=== PATIENT | female | born 1950 | race Caucasian/White ===

== ENCOUNTER 2016-10-27 15:41 | Inpatient (IN) | payer OTHER ==
[2016-10-27] VITALS (11 sets, daily range): BP systolic 90–131; BP diastolic 51–90; PULSE 70–96; TEMP 36.8–36.9; O2SAT 96–100; Ht 162.6 cm; Wt 95.6 kg
[~2016-10-27] VITALS: Ht 162.6 cm; Wt 95.6 kg
[~2016-10-27 15:41] MED LIST: ASPI81TA28 PO; ATOR-26 PO; CARV6.25 PO; CARV6.252 PO; CLX20 PO; DICL1GEL12 EXT; DOCU100C PO; FERR1TAB13 PO; FOLI1TAB7 PO; FURO-85 PO; GENT1SOL OTB; LAMO200T PO; LOSA1TAB38 PO; MELA1TAB3 PO; MISCCAP80 PO; PRENTAB26 PO; ROPI0.25 PO; WARF7.5T PO; WARF7.5T4 PO
--- NOTE | 2016-10-27 17:00 | DIAGNOSTIC IMAGING REPORT ---
CHEST ONE VIEW PORTABLE CLINICAL HISTORY: Shortness of breath and cough. Evaluate for pneumonia. COMPARISON STUDY: Chest radiograph April 15, 2016. FINDINGS: Lung volumes are normal. Lungs are clear. There is no pneumothorax or pleural effusion. Cardiac size is normal. There is a prosthetic aortic valve. There is no evidence of pulmonary edema. There are median sternotomy wires. The appearance of the chest is unchanged. IMPRESSION: No acute cardiopulmonary findings. Electronically signed by: Fabiano Gutierrez M.D. 10/27/2016 4:58 PM Dictated Date/Time: 10/27/2016 4:58 PM
[2016-10-27] MEDS ORDERED: SODIUM CHLORIDE 0.9% 500ML 500 ML IV STA (17:06)
[2016-10-27 17:30] LABS: HEMATOCRIT 18.1 % (37-47); MEAN CELL VOLUME 85.4 fL (80-100); MEAN CORPUSCULAR HEMOGLOBIN 28.3 pg (25-34); MEAN CORPUSCULAR HGB CONC 33.1 g/dl (32-36); MEAN PLATELET VOLUME 9.2 fL (7.4-10.4); PLATELET COUNT 146 K/uL (130-400); RED BLOOD COUNT 2.12 M/uL (4.2-5.4); WHITE BLOOD COUNT 8.09 K/uL (4.8-10.8)
[2016-10-27 17:33] LABS: INR 5.1 (0.9-1.1); PARTIAL THROMBOPLASTIN RATIO 1.7; PROTHROMBIN TIME (PATIENT) 58.6 SECONDS (9.0-12.0)
[2016-10-27] MEDS ORDERED: ACETAMINOPHEN 500 MG TAB PO ONE (17:35)
[2016-10-27] MEDS ORDERED: GENT0.3S6 OTB (18:20)
[2016-10-27] MEDS ORDERED: MELA1TAB5 PO (18:20)
[2016-10-27] MEDS ORDERED: ACET-1311 PO (18:22)
[2016-10-27] MEDS ORDERED: SENN-65 PO (18:23)
[2016-10-27] MEDS ORDERED: PHYTONADIONE INJ 2 MG in SODIUM CHLORIDE 0.9% 50ML 50 ML IV ONE (18:30)
[2016-10-27] MEDS ORDERED: GENTAMICIN SULFATE 0.3% OP SOLN 5 ML BTL OT PRN (20:00)
[2016-10-27] MEDS ORDERED: ONDANSETRON INJ 2 MG/ML 2 ML VIAL IV PRN (20:00)
[2016-10-27] MEDS ORDERED: MELATONIN 6 MG PO PRN (20:00)
[2016-10-27] MEDS ORDERED: ROPINIROLE HCL 0.25 MG TAB PO PRN (20:00)
--- NOTE | 2016-10-27 20:00 | History and Physical ---
History & Physical Date & Time of Service: Oct 27, 2016 at 19:58 Chief Complaint: Low Blood Pressure, Low Oxygen Level Primary Care Physician: Tanya Soriano M.D. History of Present Illness Source: patient This a 66 yo F with past medical hx of congenital bicuspid aortic valve s/p mechanical aortic valve replacement by Dr Merino in [place], [place] in 2006 , HTN , Hyperlipidemia presented to ED with progressive SOB , JONES , dizzy spell and lightheadedness , seen at her PCP office today at [facility] Found to be hypotensive BP 84/64 lab work showed Hb ~6 pt was asked to come to ED for further evaluation pt mentions of having chronic dark stool as she takes Fe tablet , no bright red blood per rectum , no hematemesis she takes Coumadin for mechanical AVR INR ~ 5 in ED pt was admitted on 03/2016 with similar presentation , profound anemia required multiple PRBC transfusion Colonoscopy done on 04/18/16 was normal study pt will be admitted to Telemetry PRBC transfusion ordered to correct anemia /hypotension GI eval requested Past Medical/Surgical History Aortic valve, bicuspid 08/03/2006 Bipolar 2 disorder, major depressive episode (HCC) [facility], Dr Oconnor Chronic mastoiditis Chronic sinusitis Dysfunction of eustachian tube Dyslipidemia HTN, Mixed hearing loss, bilateral Otitis media TIA (transient ischemic attack) 2011 while off of couamdin and on lovenox Family History Cancer FH: coronary artery disease Heart disease Hypertension Social History Smoking Status: Former Smoker Smokeless Tobacco Use: No Alcohol Use: none Drug Use: none Marital Status: Housing status: lives with family Occupational Status: retired Immunizations History of Influenza Vaccine: Yes Influenza Vaccine Date: Jun 23, 2005 History of Tetanus Vaccine?: Yes Tetanus Immunization Date: Dec 22, 2000 History of Pneumococcal: Yes History of Hepatitis B Vaccine: Yes Hepatitis Immunization Date: Feb 21, 1999 Multi-Drug Resistant Organisms History of MDRO: No Allergies Coded Allergies: Ciprofloxacin (Verified Allergy, Intermediate, NAUSEA/HIVES, 10/27/16) Simvastatin (Verified Allergy, Intermediate, HIVES AND SWELLING, 10/27/16) Latex1 -Allergic Contact Dermititis (Verified Allergy, Unknown, BLISTERING HIVES, 10/27/16) Penicillins (Verified Allergy, Unknown, HIVES, 10/27/16) Home Medications Scheduled Aspirin (Aspirin Ec), 81 MG PO DAILY AT NOON Atorvastatin (Lipitor), 80 MG PO QAM Carvedilol (Coreg), 6.25 MG PO BID Docusate Sodium (Stool Softener), 1 CAP PO DAILY AFTERNOON Ferrous Sulfate (Kp Ferrous Sulfate), 1 TAB PO DAILY AFTERNOON Folic Acid (Folvite), 1 MG PO DAILY AFTERNOON Furosemide (Lasix), 20 MG PO QAM Lamotrigine (Lamictal), 200 MG PO QPM Losartan Potassium (Cozaar), 100 MG PO QAM Multivit/Min/Iron/Fol Ac/Pren ( Vitamin), 1 TAB PO DAILY AFTERNOON Probiotic Product (Probiotic), 1 CAP PO DAILY AT NOON Senna/Docusate Sod (Senokot S), 1 TAB PO BID Warfarin Sod (Jantoven), 7.5 MG PO 4XWK Warfarin Sodium (Coumadin), 1.5 TABS PO 3XWK Scheduled PRN Acetaminophen (Tylenol), 325 MG PO BID PRN for Pain Diclofenac Sodium (Topical) (Voltaren 1% Top Gel), 1 DOSE EXT DIRECTED PRN for Pain Gentamicin Sulfate (Ophth) (Gentamicin 0.3% Oph), 4 DROPS OTB UD PRN for PRN Melatonin (Kp Melatonin), 6 MG PO HS PRN for Insomnia Ropinirole (Requip), 0.25 MG PO QPM PRN for RESTLESS LEG Review of Systems Constitutional: + fatigue, + weakness Eyes: No diplopia, No discharge, No eye pain, No problem reported, No redness, No worsening of vision Respiratory: + dyspnea at rest, + dyspnea on exertion, + shortness of breath, No cough, No hemoptysis, No problem reported, No sputum, No wheezing Cardiovascular: + palpitations, No PND, No chest pain, No claudication, No edema, No orthopnea, No problem reported Abdomen: + problem reported (chronic dark stool ), No GI bleeding, No constipation, No diarrhea, No nausea, No pain, No vomiting Musculoskeletal: No calf pain, No joint pain, No muscle pain, No problem reported, No swelling Neurologic: + vertigo, + weakness Endocrine: + fatigue Physical Exam Vital Signs Date Time Temp Pulse Resp B/P Pulse Ox O2 Delivery O2 Flow Rate FiO2 10/27/16 19:52 73 18 119/63 100 2.0 10/27/16 19:50 79 16 119/63 100 2.0 10/27/16 19:38 36.8 72 16 130/55 100 2.0 10/27/16 19:02 73 17 117/48 100 Nasal Cannula 2.0 10/27/16 18:41 74 17 100 Nasal Cannula 2.0 10/27/16 18:34 79 80/48 100 Nasal Cannula 2.0 10/27/16 18:32 80/48 10/27/16 18:11 69 12 100 10/27/16 17:41 75 16 100 10/27/16 17:22 66 10/27/16 17:20 100 Nasal Cannula 2.0 10/27/16 17:04 97/43 10/27/16 16:49 65 18 97/43 100 Room Air 10/27/16 16:02 78 100 Room Air 10/27/16 15:52 36.9 18 95/48 Room Air General Appearance: no apparent distress Head: normocephalic, atraumatic Eyes: sclerae normal Neck: supple, thyroid normal, no JVD Respiratory/Chest: chest non-tender, lungs clear, normal breath sounds, no respiratory distress Cardiovascular: regular rate, rhythm, + pertinent finding (systolic murmur / mechanical valve in aortic area ) Abdomen/GI: normal bowel sounds, non tender, soft Extremities/Musculoskelatal: normal capillary refill, no pedal edema Neurologic/Psych: no motor/sensory deficits, alert, normal mood/affect, + abnormal cerebellar tests Skin: normal color, warm/dry, no rash Lymphatic: no adenopathy Diagnostics Laboratory Results Results Past 24 Hours Test 10/27/16 17:06 Range/Units White Blood Count 8.09 4.8-10.8 K/uL Red Blood Count 2.12 4.2-5.4 M/uL Hemoglobin 6.0 12.0-16.0 g/dL Hematocrit 18.1 37-47 % Mean Corpuscular Volume 85.4 80-100 fL Mean Corpuscular Hemoglobin 28.3 25-34 pg Mean Corpuscular Hemoglobin Concent 33.1 32-36 g/dl RDW Standard Deviation 50.4 36.4-46.3 fL RDW Coefficient of Variation 16.8 11.5-14.5 % Platelet Count 146 130-400 K/uL Mean Platelet Volume 9.2 7.4-10.4 fL Prothrombin Time 58.6 9.0-12.0 SECONDS Prothromb Time International Ratio 5.1 0.9-1.1 Activated Partial Thromboplast Time 44.9 21.0-31.0 SECONDS Partial Thromboplastin Ratio 1.7 Troponin I < 0.015 0-0.045 ng/ml Diagnostic Radiology CHEST ONE VIEW PORTABLE CLINICAL HISTORY: Shortness of breath and cough. Evaluate for pneumonia. COMPARISON STUDY: Chest radiograph April 15, 2016. FINDINGS: Lung volumes are normal. Lungs are clear. There is no pneumothorax or pleural effusion. Cardiac size is normal. There is a prosthetic aortic valve. There is no evidence of pulmonary edema. There are median sternotomy wires. The appearance of the chest is unchanged. IMPRESSION: No acute cardiopulmonary findings. Impression Assessment and Plan SYMPTOMATIC ANEMIA presented with hB ~6 , possible GI bleed -upper vs lower pt requires to be on therapeutic anticoagulation with Coumadin for mechanical AVR presented with dizzy spell , lightheadedness, JONES, Hypotension symptom has been ongoing for past 10 days , got worse yesterday hx of prior anemia ~ 7 months back , required PRBC transfusion Colonoscopy was normal, ordered for 2 units of PRBC to be transfused follow H&H Q 4hrs will continue transfuse till hb > 8 /improvement of symptoms NPO IV Protonix gtt GI eval requested HX OF MECHANICAL PROSTHETIC VALVE : hx of congenital bicuspid Aortic valve with severe aortic stenosis /moderate aortic insufficiency s/p aortic valve replacement with [address] [employer] mechanical robby in 07/08/[address] Merino in [facility] follows with Cardiology Gustabo Velarde on Chronic anticoagulation with Coumadin ; goal INR 2.5 -3.5 presents with INR ~5 , severe anemia , concern for GI bleed 2 mg IV Vit K given in ED repeat INR check at 1200 monitor daily PT/INR will need IV heparin bridge therapy for INR < 2 HTN : presented with hypotension due to GI bleed /blood loss anemia ordered for PRBC tranfusion hold Losartan, metoprolol monitor in Tele SOB /JONES : due to anemia no evidence of ACS Cardiac cath done prior to AVR -showed normal coronaries ECHO on 04/15/16 : LV EF normal 55-60 % , mechanical aortic valve gradient normal for prosthetic aortic valve , mild to moderate tricuspid regurgitation Doppler findings do not suggest pulmonary hypertension monitor in tele possible improvement of symptom after correction of anemia /hypotension will need repeat ECHO , cardiology eval if symptom of JONES , dizzy spell persists after Hb improves with PRBC transfusion FULL CODE DVT PROPHYLAXIS : SCD AND TEDS NO ANTICOAGULATION DUE TO GI BLEED AND ANEMIA DISPOSITION : expected to discharge home when medically stable medicine follow up with Dr Soriano Cardiology follow up with Gustabo Velarde PA-C Level of Care Telemetry Resuscitation Status FULL RESUSCITATION VTE Prophylaxis VTE Risk Assessment Done? Y/N: Yes Risk Level: Moderate Given or contraindicated: T.E.Rickie Stockings, SCD's Note In my clinical judgment this beneficiary meets acute admission criteria, established by [facility], that includes being hospitalized through two midnights. Additional Copies To Tanya Soriano M.D. Gustabo Velarde PA-C
[2016-10-27] MEDS ORDERED: PANTOprazole INJ 80 MG in DEXTROSE 5% 100ML IV SCH (20:15)
[2016-10-27] MEDS ORDERED: PANTOprazole INJ 40 MG in DEXTROSE 5% 100ML IV SCH (20:35)
[2016-10-27] MEDS: FERROUS SULFATE 325 MG TAB PO SCH (22:22)
--- NOTE | 2016-10-27 22:32 | EMERGENCY ROOM VISIT NOTE ---
History Report prepared by Yeniibmary ellen: Chetna Kwon Under the Supervision of: Dr. Chris Wang M.D. First contact with patient: 16:25 Chief Complaint: HYPOTENSION Stated Complaint: LOW BLOOD PRESSURE, LOW OXYGEN LEVEL History of Present Illness The patient is a 66 year old female who presents to the Emergency Room with complaints of worsening dizziness for the past 10 days. She is accompanied by her . She also complains of shortness of breath and states "I can feel that I'm low on Oxygen". She checked her pulse ox last night and states it her Oxygen was around 87. The patient saw her doctor, Dr. Cherelle Huggins, earlier today and also had labs drawn. Her blood pressure was 80/47 in the office and she was found to be highly anemic and was referred to the ED for further evaluation. She denies any rectal bleeding, hematochezia or abdominal pain. The patient admits she does take daily Warfarin and has been on it for over 10 years due to heart valve issues. She states her INR was last checked a few days ago, and was "normal". The patient reports she had a colonoscopy in August 2016 and the results were "normal". 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 A total of 10 systems reviewed and were otherwise negative. Past Medical & Surgical Medical Problems: (1) Anemia (2) Anticoagulation therapy continued upon discharge (3) GI bleed (4) Hypertension (5) Kidney disease Family History Cancer FH: coronary artery disease Heart disease Hypertension Social History Smoking Status: Former Smoker Alcohol Use: occasionally Drug Use: none Marital Status: Housing Status: lives with family Occupation Status: retired Current/Historical Medications Scheduled Aspirin (Aspirin Ec), 81 MG PO DAILY AT NOON Atorvastatin (Lipitor), 80 MG PO QAM Carvedilol (Coreg), 6.25 MG PO BID Docusate Sodium (Stool Softener), 1 CAP PO DAILY AFTERNOON Ferrous Sulfate (Kp Ferrous Sulfate), 1 TAB PO DAILY AFTERNOON Folic Acid (Folvite), 1 MG PO DAILY AFTERNOON Furosemide (Lasix), 20 MG PO QAM Lamotrigine (Lamictal), 200 MG PO QPM Losartan Potassium (Cozaar), 100 MG PO QAM Multivit/Min/Iron/Fol Ac/Pren ( Vitamin), 1 TAB PO DAILY AFTERNOON Probiotic Product (Probiotic), 1 CAP PO DAILY AT NOON Senna/Docusate Sod (Senokot S), 1 TAB PO BID Warfarin Sod (Jantoven), 7.5 MG PO 4XWK Warfarin Sodium (Coumadin), 1.5 TABS PO 3XWK Scheduled PRN Acetaminophen (Tylenol), 325 MG PO BID PRN for Pain Diclofenac Sodium (Topical) (Voltaren 1% Top Gel), 1 DOSE EXT DIRECTED PRN for Pain Gentamicin Sulfate (Ophth) (Gentamicin 0.3% Oph), 4 DROPS OTB UD PRN for PRN Melatonin (Kp Melatonin), 6 MG PO HS PRN for Insomnia Ropinirole (Requip), 0.25 MG PO QPM PRN for RESTLESS LEG Allergies Coded Allergies: Ciprofloxacin (Verified Allergy, Intermediate, NAUSEA/HIVES, 10/27/16) Simvastatin (Verified Allergy, Intermediate, HIVES AND SWELLING, 10/27/16) Latex1 -Allergic Contact Dermititis (Verified Allergy, Unknown, BLISTERING HIVES, 10/27/16) Penicillins (Verified Allergy, Unknown, HIVES, 10/27/16) Physical Exam Vital Signs Date Time Temp Pulse Resp B/P Pulse Ox O2 Delivery O2 Flow Rate FiO2 10/27/16 19:50 79 16 119/63 100 2.0 10/27/16 19:49 75 20 100 10/27/16 19:44 71 17 117/48 100 Nasal Cannula 2.0 119/63 10/27/16 19:38 36.8 72 16 130/55 100 2.0 10/27/16 19:37 73 17 117/48 100 Nasal Cannula 2.0 130/55 10/27/16 19:02 73 17 117/48 100 Nasal Cannula 2.0 10/27/16 19:01 74 16 117/48 100 10/27/16 18:41 74 17 100 Nasal Cannula 2.0 10/27/16 18:34 79 80/48 100 Nasal Cannula 2.0 10/27/16 18:32 80/48 10/27/16 18:11 69 12 100 10/27/16 17:41 75 16 100 10/27/16 17:22 66 10/27/16 17:20 100 Nasal Cannula 2.0 10/27/16 17:04 97/43 10/27/16 16:49 65 18 97/43 100 Room Air 10/27/16 16:02 78 100 Room Air 10/27/16 15:52 36.9 18 95/48 Room Air Physical Exam Constitutional: Vital signs reviewed. Eyes: Pupils are equal round reactive to light. Conjunctiva are noninjected. ENT: Pharynx is clear without erythema or exudate. Mucous membranes are moist. Neck supple without meningeal signs. Respiratory: Clear to auscultation bilaterally. Breath sounds are equal bilaterally. Cardiovascular: Regular rate and rhythm. No rubs or gallops. Network Operations Analyst valve audible. GI: Soft, nondistended and nontender. Bowel sounds are present. Rectal: Guaiac positive brown stool. No gross blood. Musculoskeletal: No peripheral edema. No lower extremity tenderness. Integumentary: No cyanosis. Neurological: The patient is awake and alert. No focal deficits. Psychiatric: Normal affect. Medical Decision & Procedures ER Provider Diagnostic Interpretation: This X-Ray was reviewed and interpreted by myself and the radiologist. CHEST ONE VIEW PORTABLE CLINICAL HISTORY: Shortness of breath and cough. Evaluate for pneumonia. COMPARISON STUDY: Chest radiograph April 15, 2016. FINDINGS: Lung volumes are normal. Lungs are clear. There is no pneumothorax or pleural effusion. Cardiac size is normal. There is a prosthetic aortic valve. There is no evidence of pulmonary edema. There are median sternotomy wires. The appearance of the chest is unchanged. IMPRESSION: No acute cardiopulmonary findings. Electronically signed by: Fabiano Gutierrez M.D. 10/27/2016 4:58 PM Laboratory Results 10/27/16 17:06 Test 10/27/16 17:06 Red Blood Count 2.12 M/uL (4.2-5.4) Mean Corpuscular Volume 85.4 fL (80-100) Mean Corpuscular Hemoglobin 28.3 pg (25-34) Mean Corpuscular Hemoglobin Concent 33.1 g/dl (32-36) RDW Standard Deviation 50.4 fL (36.4-46.3) RDW Coefficient of Variation 16.8 % (11.5-14.5) Mean Platelet Volume 9.2 fL (7.4-10.4) Prothrombin Time 58.6 SECONDS (9.0-12.0) Prothromb Time International Ratio 5.1 (0.9-1.1) Activated Partial Thromboplast Time 44.9 SECONDS (21.0-31.0) Partial Thromboplastin Ratio 1.7 Troponin I < 0.015 ng/ml (0-0.045) Laboratory results as reviewed by me. Medications Administered Medications (Trade) Dose Ordered Sig/Jace Route Start Time Stop Time Status Last Admin Dose Admin Sodium Chloride (Nss 500ml) 500 ml @ 999 mls/hr Q31M STAT IV 10/27/16 17:06 10/27/16 17:36 DC 10/27/16 17:06 999 MLS/HR Acetaminophen 1000 mg 1,000 mg STK-MED ONCE PO 10/27/16 17:35 10/27/16 17:36 DC 10/27/16 17:35 1,000 MG Phytonadione/ Sodium Chloride (Aqua-Mephyton Inj/Nss 50ml) 50.2 ml @ 100.5 mls/ hr ONE ONCE IV 10/27/16 18:30 10/27/16 18:59 DC 10/27/16 19:09 100.5 MLS/HR ECG Indication: weakness Rate (beats per minute): 67 Rhythm: normal sinus Findings: T-wave inversion (in V1 to V2), no ectopy ED Course 1627: The patient was evaluated in room C2A. A complete history and physical exam was performed. 1700: I reevaluated the patient. Her blood pressure is 97/43 and she is just now getting an IV placed. 1706: NSS 500 ml @ 999 mls/hr IV. 1730: I reevaluated the patient. She complains of some intermittent shoulder achiness, which she has experienced before. We will treat with Tylenol. 1735: Acetaminophen 1000 mg PO. 1755: I discussed the patients case with Dr. Benitez, [facility] Anticoagulation Medicine. She states we can either try to get the patients INR to a therapeutic level by giving Vitamin K, or completely reverse her and put her on Heparin. We can discuss this with the hospitalist, and see what they would like to do. 1803: I reevaluated the patient. I discussed her options with anticoagulation. She states if we do decide to reverse her, we have to put on her a Heparin drip , because when she was reversed in the past after shoulder surgery, she developed a "stroke in her eye". 184: I discussed the patients case with Jesica García Hospitalist. The patient will be further evaluated and Dr. Bee is agreeable with Vitamin K for now. 1853: Transfusion of Vitamin K initiated. 1909: I reevaluated the patient. Her blood pressure is 117/48 and the blood is ready. Medical Decision This is a 66-year-old female who presents with dizziness. Differential diagnosis includes GI bleed, anemia, supratherapeutic INR, cardiac ischemia, pneumonia. I did perform a limited focused review of portions of the patient's old chart on the electronic medical record. The patient has had no recent pertinent visits to this hospital. She had a colonoscopy in April 2016 which was unremarkable. I did evaluate the patient as noted above. The patient is presenting with dizziness for the past 10 days. She had blood work drawn at [facility] today which showed a hemoglobin of 6. IV access was established. The patient was placed on a continuous cardiac technician.The patient was given a bolus of normal saline IV for her blood pressure. I did order and personally review the patient 's 12-lead EKG and chest x-ray as described above. I did order and review the patient's blood work as noted in the electronic medical record. Her hemoglobin is 6. INR is 5.1. I did discuss the case with to her recommended either completely reversing her and placing on heparin versus giving her 2 mg of IV vitamin K to bring her INR down and transfusing her. I did discuss recommendations with the patient and her . I did order a transfusion for 2 units of packed red blood cells. I did treat her with 2 mg of vitamin K. I did discuss the case with the hospitalist. She was admitted to the hospital. Consults Time Called: 1750 Consulting Physician: Dr. Benitez, [facility] Anticoagulation Medicine Returned Call: [phone] I discussed the patients case with Dr. Benitez, [facility] Anticoagulation Medicine. She states we can either try to get the patients INR to a therapeutic level by giving Vitamin K, or completely reverse her and put her on Heparin. We can discuss this with the hospitalist, and see what they would like to do. Additional Consults: Time Called: 1800 Consulted Physician: Jesica García Hospitalist Returned Call: [phone] Additional Comments: I discussed the patients case [facility] Dr. Bee[facility] The patient will be further evaluated and Dr. Bee is agreeable with Vitamin K for now. Impression Primary Impression: GI bleed Additional Impressions: Supratherapeutic INR Anticoagulated on warfarin Hypotension Critical Care I have personally spent greater than 30 minutes of critical care time in the direct management of this patient. This includes bedside care, interpretation of diagnostic studies, and testing, discussion with consultants, patient, and family members, and other required patient management activities. This 30 minutes is in excess of all separately billable procedures. Scribe Attestation The scribe's documentation has been prepared under my direct and personally reviewed by me in its entirety. I confirm that the note above accurately reflects all work, treatment, procedures, and medical decision making performed by me. Departure Information Dispostion Being Evaluated By Hospitalist Referrals Tanya Soriano M.D. (PCP) Patient Instructions [facility] Problem Qualifiers
[2016-10-28] VITALS (12 sets, daily range): BP systolic 103–137; BP diastolic 65–83; PULSE 68–78; TEMP 36.5–36.8; O2SAT 93–99
[2016-10-28] MEDS: DOCUSATE SODIUM 100 MG CAP PO SCH ×3 (00:15→20:54)
[2016-10-28] MEDS: PANTOprazole INJ 40 MG in DEXTROSE 5% 100ML IV SCH ×5 (02:02→21:03)
[2016-10-28 03:02] LABS: INR 1.8 (0.9-1.1); PROTHROMBIN TIME (PATIENT) 20.2 SECONDS (9.0-12.0)
[2016-10-28 03:13] LABS: BUN/CREATININE RATIO 22.3 (10-20); CALCIUM 7.6 mg/dl (8.5-10.1); CREATININE 1.1 mg/dl (0.60-1.20); MAGNESIUM 2.2 mg/dl (1.8-2.4); POTASSIUM 3.5 mmol/L (3.5-5.1)
[2016-10-28 03:15] LABS: ALB/GLOB RATIO 1.2 (0.9-2)
[2016-10-28 04:22] LABS: HEMATOCRIT 23.3 % (37-47)
[2016-10-28] MEDS ORDERED: FUROSEMIDE INJ 20 MG in SYRINGE 0 ML IV STA (04:28)
[2016-10-28] MEDS ORDERED: HEPARIN IV LOW DOSE NO BOLUS STA (05:40)
--- NOTE | 2016-10-28 06:31 | Progress Note ---
Progress Note ATTENDING ADDENDUM: lab reviewed : Hb improved to 6-> 7.7 after 2 units of PRBC transfusion INR 1.8 symptom of dizzy spell , SOB , JONES markedly improved with PRBC transfusion BP normalized to 130/70 resume beta kim with holding parameters cont to hold Losartan till GI Bleed work up complete ( may need bowel prep for repeat Colonoscopy ) given recurrent GI bleed /anemia should have EGD /Colonoscopy will defer to GI ordered for 1 more unit of PRBC transfusion started on IV Heparin Bridge therapy as INR sub therapeutic -presence of mechanical AVR
[2016-10-28 06:58] LABS: PARTIAL THROMBOPLASTIN RATIO 1.2
[2016-10-28] MEDS: HEPARIN 25,000 UNIT/500ML D5W 500 ML IV PRN (07:12)
[2016-10-28] MEDS: PRENATAL VITAMIN TAB PO SCH (08:30)
[2016-10-28] MEDS: CARVEDILOL 6.25 MG TAB PO SCH ×2 (08:34→20:52)
[2016-10-28 09:00] LABS: HEMATOCRIT 27.3 % (37-47); MEAN CELL VOLUME 83.7 fL (80-100); MEAN CORPUSCULAR HEMOGLOBIN 27.6 pg (25-34); MEAN PLATELET VOLUME 9.6 fL (7.4-10.4); PLATELET COUNT 123 K/uL (130-400); RED BLOOD COUNT 3.26 M/uL (4.2-5.4); WHITE BLOOD COUNT 6.39 K/uL (4.8-10.8)
[2016-10-28] MEDS ORDERED: DOCUSATE SODIUM 100 MG CAP PO SCH (09:00)
[2016-10-28 13:48] LABS: PARTIAL THROMBOPLASTIN RATIO 2.3
--- NOTE | 2016-10-28 13:54 | GASTROINTESTINAL CONSULTATION ---
DATE OF CONSULTATION: 10/28/2016 RACE: . ATTENDING PHYSICIAN: Dr. Maxwell. CONSULTING PHYSICIAN: Dr. Buckner. REASON FOR CONSULTATION: Anemia, GI bleeding. HISTORY OF PRESENT ILLNESS: Domi Urrutia is a 66-year-old female who has an extensive past medical history including congenital bicuspid aortic valve status post mechanical aortic valve replacement in 2006, on chronic anticoagulation. She was noted to have shortness of breath, dyspnea on exertion and lightheadedness and dizziness while being seen at her PCP's office on 10/27/2016 and subsequently presented to the Department of Emergency Medicine where she was noted to have an H\T\H of 6.0 and 18.1. She received a total of 3 units of packed red blood cells and was placed on Protonix drip at 8 mg per hour. She had a subsequent rise of her H\T\H to today's level of 9.0 and 27.3 and states that she is feeling much better. It should be noted that upon arrival to the ER, her INR was noted to be elevated at 5.1 and she was given vitamin K and her INR today is 1.8. She did have a similar episode in April at which time she underwent a colonoscopy by Dr. Alejandre in April 2016, which was normal. She has never undergone an upper endoscopy as per the patient. She states that she does not have any history of GERD nor does she take any PPI therapy at home and denies any chronic NSAID use, but is again on Coumadin therapy. She denies any further complaints at this time including hematemesis, melena, hematochezia, fevers, chills, nausea, vomiting, chest pain, shortness of breath, cough, dysuria, hematuria, arthralgia, myalgias, numbness or tingling in her extremities, skin rash or recent weight loss. PAST MEDICAL HISTORY: Significant for bicuspid aortic valve, hypertension, hyperlipidemia, bipolar disease, chronic mastoiditis, chronic sinusitis, dyslipidemia, hypertension, bilateral mixed hearing loss, otitis media and TIA. PAST SURGICAL HISTORY: Includes mechanical aortic valve replacement by Dr. Merino at [facility] in [place] in 2006. ALLERGIES: CIPROFLOXACIN, LATEX, PENICILLIN, AND ZOCOR. CURRENT MEDICATIONS: Include folic acid 1 mg p.o. daily, vitamin 1 tab p.o. daily, carvedilol 6.25 mg p.o. b.i.d., heparin IV, Protonix 40 mg drip at 8 mg per hour, Colace 100 mg p.o. daily, Lamictal 200 mg p.o. q.p.m., Zofran 4 mg IV q. 6 p.r.n. nausea, Requip 0.25 mg p.o. q.p.m. p.r.n. restless legs, iron sulfate therapy 325 mg p.o. daily. SOCIAL HISTORY: She is . She denies any tobacco, alcohol or illicit drug use. FAMILY HISTORY: Negative for GI malignancy or inflammatory bowel disease. REVIEW OF SYSTEMS: Negative x12 system review other than pertinent positives listed in the HPI. PHYSICAL EXAMINATION: VITAL SIGNS: Include a temp of 36.7, pulse 78, respirations 16, blood pressure 103/65, pulse ox 93% on room air. GENERAL: She is awake, cooperative, in no acute distress. She is chronic ill appearing. HEAD: Normocephalic, atraumatic. EYES: Pupils equally round. Extraocular muscles are intact. ENT: External evaluation of ears and nose are normal. Oropharynx is clear. NECK: Soft and supple. There is no JVD or lymphadenopathy. CHEST: Clear to auscultation bilaterally. CARDIOVASCULAR SYSTEM: Regular rate and rhythm. ABDOMEN: Soft, nontender, nondistended. There are positive bowel sounds. There is no hepatosplenomegaly or stigmata of chronic liver disease. EXTREMITIES: No clubbing, cyanosis or edema. LABORATORY STUDIES: From today include an H\T\H of 9.0 and 27.3. A liver panel today shows a total protein 5.3, albumin 2.9, total bilirubin 0.6, AST 18, ALT 18 and alkaline phosphatase of 73. IMPRESSION: A 66-year-old female with symptomatic anemia with transfusion requirement with appropriate response. PLAN: At the present time the patient had an appropriate response to transfusion of 3 units of packed red blood cells and will be maintained on a Protonix drip at 8 mg per hour. She has undergone a colonoscopy as recently as April 2016 and therefore, I did not think that she has any reason to undergo a colonoscopy at this time, though she has never undergone an upper endoscopy in the past as she is currently hemodynamically stable and had an appropriate response to transfusions without any overt GI bleeding, I do not believe that this is an emergency and I will follow her clinical course throughout her hospitalization, though she will need EGD in the short term. I will continue her Protonix therapy at present. I will follow her clinical course and make further recommendations as needed. Once again, thank you for allowing me to participate in the care of this patient. If you have any further questions, please do not hesitate in contacting me.
[2016-10-28] MEDS: CITALOPRAM 40 MG TAB PO SCH (14:13)
[2016-10-28 16:28] LABS: HEMATOCRIT 27.1 % (37-47)
--- NOTE | 2016-10-28 18:04 | Progress Note ---
Medicine Progress Note Date & Time of Visit: Oct 28, 2016 at 17:58. Subjective Patient seen and examined. Feeling better this morning after transfusion. Objective Last 8 Hrs Date Time Temp Pulse Resp B/P Pulse Ox O2 Delivery O2 Flow Rate FiO2 10/28/16 16:00 Room Air 10/28/16 15:13 36.7 68 20 118/73 97 Room Air 10/28/16 12:00 Room Air 10/28/16 11:30 36.7 78 16 103/65 93 Room Air Physical Exam: General-awake; alert; NAD Eyes-EOMI; no scleral icterus Neck-no stridor; trachea midline Lungs-CTA bilaterally; no wheezes/crackles Heart-RRR; +murmur Abdomen-soft; NTND; nBS Extremities-no c/c/e; no deformity Neuro-no gross focal deficits Laboratory Results: Last 24 Hours Test 10/28/16 02:40 10/28/16 02:45 10/28/16 08:07 10/28/16 13:06 Hemoglobin 7.7 g/dL 9.0 g/dL Hematocrit 23.3 % 27.3 % Prothrombin Time 20.2 SECONDS Prothromb Time International Ratio 1.8 Activated Partial Thromboplast Time 32.3 SECONDS 59.9 SECONDS Partial Thromboplastin Ratio 1.2 2.3 Sodium Level 143 mmol/L Potassium Level 3.5 mmol/L Chloride Level 107 mmol/L Carbon Dioxide Level 26 mmol/L Anion Gap 10.0 mmol/L Blood Urea Nitrogen 24 mg/dl Creatinine 1.10 mg/dl Est Creatinine Clear Calc Drug Dose 58.5 ml/min Estimated GFR () 61.4 Estimated GFR (Non- 53.0 BUN/Creatinine Ratio 22.3 Random Glucose 87 mg/dl Calcium Level 7.6 mg/dl Magnesium Level 2.2 mg/dl Total Bilirubin 0.6 mg/dl Aspartate Amino Transf (AST/SGOT) 18 U/L Alanine Aminotransferase (ALT/SGPT) 18 U/L Alkaline Phosphatase 73 U/L Total Protein 5.3 gm/dl Albumin 2.9 gm/dl Globulin 2.4 gm/dl Albumin/Globulin Ratio 1.2 White Blood Count 6.39 K/uL Red Blood Count 3.26 M/uL Mean Corpuscular Volume 83.7 fL Mean Corpuscular Hemoglobin 27.6 pg Mean Corpuscular Hemoglobin Concent 33.0 g/dl RDW Standard Deviation 45.8 fL RDW Coefficient of Variation 15.8 % Platelet Count 123 K/uL Mean Platelet Volume 9.6 fL Test 10/28/16 16:18 Hemoglobin 9.1 g/dL Hematocrit 27.1 % Assessment & Plan SYMPTOMATIC ANEMIA - Hgb ~6 on admission - patient denies any active bleeding symptoms - colonoscopy was normal in 04/2016 - GI consulted - transfused 3units PRBC's with appropriate response in Hgb - continue IV Protonix gtt - possible upcoming EGD HX OF MECHANICAL PROSTHETIC VALVE - hx of congenital bicuspid Aortic valve with severe aortic stenosis /moderate aortic insufficiency - s/p aortic valve replacement with [address] [employer] mechanical robby in 07/08/[address] Merino in [facility] - INR reversed with vitamin K - continue heparin drip HTN - presented with hypotension - improved after transfusions - hold Losartan, metoprolol FULL CODE DVT PROPHYLAXIS : SCD AND TEDS NO ANTICOAGULATION DUE TO GI BLEED AND ANEMIA DISPOSITION : expected to discharge home when medically stable medicine follow up with Dr Soriano Cardiology follow up with Gustabo Velarde PA-C Consultants: Gastroenterology Current Inpatient Medications: Current Inpatient Medications Medications (Trade) Dose Ordered Sig/Jace Route Start Time Stop Time Status Last Admin Dose Admin Ondansetron HCl (Zofran Inj) 4 mg Q6H PRN IV 10/27/16 20:00 11/26/16 19:59 Folic Acid (Folvite Tab) 1 mg DAILY PO 10/28/16 09:00 11/27/16 08:59 10/28/16 08:30 1 MG Gentamicin Sulfate (Gentamicin 0.3% Oph Soln) 4 drops UD PRN OT 10/27/16 20:00 11/06/16 19:59 Prenat Multivit/ Casting And Curing Operator/Iron/Folic Ac ( Vitamin Tab) 1 tab DAILY PO 10/28/16 09:00 11/27/16 08:59 10/28/16 08:30 1 TAB Ropinirole HCl (Requip Tab) 0.25 mg QPM PRN PO 10/27/16 20:00 11/26/16 19:59 Ferrous Sulfate (Feosol Tab) 325 mg DAILY@2000 PO 10/27/16 20:00 11/26/16 19:59 10/27/16 22:22 325 MG Lamotrigine (Lamictal Tab) 200 mg QPM PO 10/27/16 21:00 11/26/16 20:59 10/27/16 22:22 200 MG Miscellaneous Information (Order Awaiting Action) 1 ea QS N/A 10/28/16 00:00 11/27/16 00:00 Docusate Sodium 100 mg 100 mg DAILY PO 10/28/16 00:15 11/27/16 00:14 10/28/16 08:30 100 MG Pantoprazole Sodium 40 mg/ Dextrose 100 ml @ 20 mls/hr Q5H IV 10/28/16 01:45 11/27/16 01:44 10/28/16 15:28 20 MLS/HR Heparin Sodium/ Dextrose (Heparin 25,000 Unit/500ml D5W) 500 ml @ 17 mls/hr Q24H PRN IV 10/28/16 06:00 11/27/16 05:59 10/28/16 07:12 17 MLS/HR Carvedilol (Coreg Tab) 6.25 mg BID PO 10/28/16 09:00 11/27/16 08:59 10/28/16 08:34 6.25 MG Atorvastatin Calcium (Lipitor Tab) 80 mg QAM PO 10/29/16 09:00 11/28/16 08:59 Citalopram Hydrobromide (celeXA TAB) 40 mg QAM PO 10/28/16 13:00 11/27/16 12:59 10/28/16 14:13 40 MG
[2016-10-28] MEDS: FERROUS SULFATE 325 MG TAB PO SCH (20:52)
[2016-10-29] VITALS (7 sets, daily range): BP systolic 93–178; BP diastolic 56–91; PULSE 64–79; TEMP 36.5–37; O2SAT 95–99
[2016-10-29] MEDS: PANTOprazole INJ 40 MG in DEXTROSE 5% 100ML IV SCH ×5 (02:30→22:49)
[2016-10-29 06:25] LABS: HEMATOCRIT 26.2 % (37-47); MEAN CELL VOLUME 83.2 fL (80-100); MEAN CORPUSCULAR HEMOGLOBIN 27.6 pg (25-34); MEAN CORPUSCULAR HGB CONC 33.2 g/dl (32-36); MEAN PLATELET VOLUME 8.7 fL (7.4-10.4); PLATELET COUNT 123 K/uL (130-400); RED BLOOD COUNT 3.15 M/uL (4.2-5.4)
[2016-10-29 07:00] LABS: INR 1.3 (0.9-1.1); PROTHROMBIN TIME (PATIENT) 14.1 SECONDS (9.0-12.0)
[2016-10-29 07:01] LABS: BUN/CREATININE RATIO 16.1 (10-20); CALCIUM 8.2 mg/dl (8.5-10.1); CREATININE 1.1 mg/dl (0.60-1.20); MAGNESIUM 2.5 mg/dl (1.8-2.4); POTASSIUM 3.6 mmol/L (3.5-5.1)
[2016-10-29 07:02] LABS: PARTIAL THROMBOPLASTIN RATIO 8.6
[2016-10-29] MEDS: PRENATAL VITAMIN TAB PO SCH (07:24)
[2016-10-29] MEDS: CARVEDILOL 6.25 MG TAB PO SCH ×2 (07:24→20:10)
[2016-10-29] MEDS: ATORVASTATIN 40 MG TAB PO SCH (07:24)
[2016-10-29] MEDS: DOCUSATE SODIUM 100 MG CAP PO SCH (07:25)
[2016-10-29] MEDS: CITALOPRAM 40 MG TAB PO SCH (07:25)
[2016-10-29 08:15] LABS: PARTIAL THROMBOPLASTIN RATIO 7.9
[2016-10-29 09:31] LABS: PARTIAL THROMBOPLASTIN RATIO 4.7
[2016-10-29 10:42] LABS: PARTIAL THROMBOPLASTIN RATIO 2.8
[2016-10-29] MEDS: HEPARIN 25,000 UNIT/500ML D5W 500 ML IV PRN ×3 (11:25→18:52)
[2016-10-29] MEDS ORDERED: POLYETHYLENE (MIRALAX) 17 GM PACK PO PRN (12:30)
--- NOTE | 2016-10-29 13:59 | PROGRESS NOTE ---
DATE: 10/29/2016 GASTROENTEROLOGY PROGRESS NOTE AND CROSS COVERAGE FOR [facility] GA[facility] RACE: . SUBJECTIVE: I had the pleasure of seeing Domi Urrutia today at her bedside. She is feeling much better. She denies any fevers, chills, nausea, vomiting, diarrhea, hematemesis, melena or hematochezia. She is tolerating p.o. intake and denies any further complaints. PHYSICAL EXAMINATION: VITAL SIGNS: Include temp 37, pulse 64, respirations 20, blood pressure 160/74, pulse ox 97% on room air. GENERAL: She is alert, oriented x3, cooperative in no acute distress. ABDOMEN: Soft, nontender, nondistended. Positive bowel sounds. There is no hepatosplenomegaly or stigmata of chronic liver disease. LABORATORY STUDIES: From today include a white blood cell count of 6.2, hemoglobin 8.7, hematocrit 26.2 and a platelet count of 123. Her sodium is 144, potassium 3.6, chloride 108, bicarbonate 28, BUN 18, creatinine 1.1 and a blood glucose level of 97. IMPRESSION: This is a 66-year-old female who presented with symptomatic anemia requiring transfusions and has had an appropriate response post-transfusion. PLAN: At the present time, I would recommend that she undergo an upper endoscopy tomorrow with Dr. Jiang for further evaluation of her acute blood loss anemia and further recommendations will be given at that time. I would continue her on Protonix at this point as she does have a history of peptic ulcer disease. I will follow her clinical course and make further recommendations as needed. Once again, thanks for allowing me to participate in the care of this patient. If you have any further questions, please do not hesitate in contacting me. ELIGIO
[2016-10-29] MEDS: POLYETHYLENE (MIRALAX) 17 GM PACK PO SCH (15:13)
--- NOTE | 2016-10-29 15:44 | Progress Note ---
Medicine Progress Note Date & Time of Visit: Oct 29, 2016 at 15:42. Subjective Patient seen and examined. Feeling well today without complaints. Denies any bleeding symptoms. Asking for Miralax. Objective Last 8 Hrs Date Time Temp Pulse Resp B/P Pulse Ox O2 Delivery O2 Flow Rate FiO2 10/29/16 14:57 36.7 77 19 146/83 98 Room Air 10/29/16 12:00 Room Air 10/29/16 11:55 37.0 64 20 160/74 97 Room Air 10/29/16 08:00 Room Air Physical Exam: General-awake; alert; NAD Eyes-EOMI; no scleral icterus Neck-no stridor; trachea midline Lungs-CTA bilaterally; no wheezes/crackles Heart-RRR; +murmur Abdomen-soft; NTND; nBS Extremities-no c/c/e; no deformity Neuro-no gross focal deficits Laboratory Results: Last 24 Hours Test 10/28/16 16:18 10/29/16 06:06 10/29/16 07:34 10/29/16 08:43 Hemoglobin 9.1 g/dL 8.7 g/dL Hematocrit 27.1 % 26.2 % White Blood Count 6.20 K/uL Red Blood Count 3.15 M/uL Mean Corpuscular Volume 83.2 fL Mean Corpuscular Hemoglobin 27.6 pg Mean Corpuscular Hemoglobin Concent 33.2 g/dl RDW Standard Deviation 47.5 fL RDW Coefficient of Variation 16.7 % Platelet Count 123 K/uL Mean Platelet Volume 8.7 fL Prothrombin Time 14.1 SECONDS Prothromb Time International Ratio 1.3 Activated Partial Thromboplast Time 225.0 SECONDS 207.5 SECONDS 123.0 SECONDS Partial Thromboplastin Ratio 8.6 7.9 4.7 Sodium Level 144 mmol/L Potassium Level 3.6 mmol/L Chloride Level 108 mmol/L Carbon Dioxide Level 28 mmol/L Anion Gap 8.0 mmol/L Blood Urea Nitrogen 18 mg/dl Creatinine 1.10 mg/dl Est Creatinine Clear Calc Drug Dose 58.0 ml/min Estimated GFR () 61.4 Estimated GFR (Non- 53.0 BUN/Creatinine Ratio 16.1 Random Glucose 97 mg/dl Calcium Level 8.2 mg/dl Magnesium Level 2.5 mg/dl Test 10/29/16 10:00 Activated Partial Thromboplast Time 73.2 SECONDS Partial Thromboplastin Ratio 2.8 Assessment & Plan SYMPTOMATIC ANEMIA - Hgb ~6 on admission - patient denies any active bleeding symptoms - colonoscopy was normal in 04/2016 - GI consulted - transfused 3units PRBC's with appropriate response in Hgb - continue IV Protonix gtt - possible EGD tomorrow HX OF MECHANICAL PROSTHETIC VALVE - hx of congenital bicuspid Aortic valve with severe aortic stenosis /moderate aortic insufficiency - s/p aortic valve replacement with [address] [employer] mechanical robby in 07/08/[address] Merino in [facility] - INR reversed with vitamin K - continue heparin drip HTN - presented with hypotension - improved after transfusions - resume losartan and carvedilol FULL CODE DVT PROPHYLAXIS : SCD AND TEDS NO ANTICOAGULATION DUE TO ANEMIA DISPOSITION : expected to discharge home when medically stable medicine follow up with Dr Soriano Cardiology follow up with Gustabo Velarde PA-C Consultants: Gastroenterology Current Inpatient Medications: Current Inpatient Medications Medications (Trade) Dose Ordered Sig/Jace Route Start Time Stop Time Status Last Admin Dose Admin Ondansetron HCl (Zofran Inj) 4 mg Q6H PRN IV 10/27/16 20:00 11/26/16 19:59 Folic Acid (Folvite Tab) 1 mg DAILY PO 10/28/16 09:00 11/27/16 08:59 10/29/16 07:24 1 MG Gentamicin Sulfate (Gentamicin 0.3% Oph Soln) 4 drops UD PRN OT 10/27/16 20:00 11/06/16 19:59 Prenat Multivit/ Learning Support Resource Room Teacher/Iron/Folic Ac ( Vitamin Tab) 1 tab DAILY PO 10/28/16 09:00 11/27/16 08:59 10/29/16 07:24 1 TAB Ropinirole HCl (Requip Tab) 0.25 mg QPM PRN PO 10/27/16 20:00 11/26/16 19:59 Ferrous Sulfate (Feosol Tab) 325 mg DAILY@1999 PO 10/27/16 20:00 11/26/16 19:59 10/28/16 20:52 325 MG Lamotrigine (Lamictal Tab) 200 mg QPM PO 10/27/16 21:00 11/26/16 20:59 10/28/16 20:53 200 MG Miscellaneous Information (Order Awaiting Action) 1 ea QS N/A 10/28/16 00:00 11/27/16 00:00 Docusate Sodium 100 mg 100 mg DAILY PO 10/28/16 00:15 11/27/16 00:14 10/29/16 07:25 100 MG Pantoprazole Sodium 40 mg/ Dextrose 100 ml @ 20 mls/hr Q5H IV 10/28/16 01:45 11/27/16 01:44 10/29/16 13:20 20 MLS/HR Heparin Sodium/ Dextrose (Heparin 25,000 Unit/500ml D5W) 500 ml @ 13 mls/hr Q24H PRN IV 10/28/16 06:00 11/27/16 05:59 10/29/16 15:22 13 MLS/HR Carvedilol (Coreg Tab) 6.25 mg BID PO 10/28/16 09:00 11/27/16 08:59 10/29/16 07:24 6.25 MG Atorvastatin Calcium (Lipitor Tab) 80 mg QAM PO 10/29/16 09:00 11/28/16 08:59 10/29/16 07:24 80 MG Citalopram Hydrobromide (celeXA TAB) 40 mg QAM PO 10/28/16 13:00 11/27/16 12:59 10/29/16 07:25 40 MG Polyethylene (Miralax Powder Packet) 17 gm DAILY PO 10/30/16 09:00 11/29/16 08:59 10/29/16 15:13 17 GM Polyethylene (Miralax Powder Packet) 17 gm DAILY PRN PO 10/29/16 12:30 11/28/16 12:29 Losartan Potassium (coZAAR TAB) 50 mg QAM PO 10/29/16 15:45 11/28/16 15:44 UNV
[2016-10-29] MEDS: LOSARTAN POTASSIUM 50 MG TAB PO SCH (16:35)
[2016-10-29 17:58] LABS: PARTIAL THROMBOPLASTIN RATIO 3.4
[2016-10-29] MEDS ORDERED: NURSING VERBAL MED ORDER ONE (19:00)
[2016-10-29] MEDS: FERROUS SULFATE 325 MG TAB PO SCH (20:09)
[2016-10-29] MEDS ORDERED: ACETAMINOPHEN 325 MG TAB PO PRN (23:00)
[2016-10-30] MEDS ORDERED: [UNRECOGNIZED DRUG - REMARK] ONE
[2016-10-30 01:18] LABS: PARTIAL THROMBOPLASTIN RATIO 2.9
[2016-10-30] MEDS: PANTOprazole INJ 40 MG in DEXTROSE 5% 100ML IV SCH ×3 (03:52→13:45)
[2016-10-30 04:51] VITALS: BP 106/70; PULSE 75; TEMP 36.7; O2SAT 99
[2016-10-30 06:55] LABS: HEMATOCRIT 26.5 % (37-47); MEAN CELL VOLUME 86.9 fL (80-100); MEAN CORPUSCULAR HEMOGLOBIN 27.9 pg (25-34); MEAN CORPUSCULAR HGB CONC 32.1 g/dl (32-36); MEAN PLATELET VOLUME 9.4 fL (7.4-10.4); PLATELET COUNT 129 K/uL (130-400); RED BLOOD COUNT 3.05 M/uL (4.2-5.4); WHITE BLOOD COUNT 4.87 K/uL (4.8-10.8)
[2016-10-30 07:02] LABS: INR 1.2 (0.9-1.1); PARTIAL THROMBOPLASTIN RATIO 1.5; PROTHROMBIN TIME (PATIENT) 12.9 SECONDS (9.0-12.0)
[2016-10-30 07:29] LABS: BUN/CREATININE RATIO 13.9 (10-20); CALCIUM 8.3 mg/dl (8.5-10.1); CREATININE 1.2 mg/dl (0.60-1.20); MAGNESIUM 2.7 mg/dl (1.8-2.4); POTASSIUM 4.1 mmol/L (3.5-5.1)
[2016-10-30 07:33] VITALS: BP 150/65; PULSE 62; TEMP 36.7; O2SAT 98
[2016-10-30 07:34] VITALS: BP 124/70; PULSE 69; TEMP 36.9; O2SAT 95
[2016-10-30 10:27] VITALS: BP 124/70; PULSE 69; TEMP 36.9; O2SAT 95
[2016-10-30] MEDS ORDERED: LIDOCAINE HCL 2% 2 ML VIAL (20MG/ML) ONE (11:30)
[2016-10-30] MEDS ORDERED: PROPOFOL IV EMULSION 10 MG/ML 20 ML VIAL IV ONE (11:30)
--- NOTE | 2016-10-30 12:19 | GI REPORT ---
Procedure Date: 10/30/2016 11:16 AM Procedure: Upper GI endoscopy Indications: Iron deficiency anemia Medicines: Monitored Anesthesia Care Complications: No immediate complications. Estimated blood loss: None. Estimated Blood Loss: Estimated blood loss: none. Procedure: Pre-Anesthesia Assessment: - Prior to the procedure, a History and Physical was performed, and patient medications, allergies and sensitivities were reviewed. The patient's tolerance of previous anesthesia was reviewed. - ASA Grade Assessment: III - A patient with severe systemic disease. After obtaining informed consent, the endoscope was passed under direct vision. Throughout the procedure, the patient's blood pressure, pulse, and oxygen saturations were monitored continuously. The On-site loaner was introduced through the mouth, and advanced to the third part of the duodenum. Small bowel enteroscopy was deemed necessary. The upper GI endoscopy was accomplished with ease. The patient tolerated the procedure well. Findings: The upper third of the esophagus, middle third of the esophagus and lower third of the esophagus were normal. The Z-line was regular. Diffuse moderate inflammation characterized by congestion (edema), erythema, linear erosions and shallow ulcerations was found in the entire examined stomach. Biopsies were taken with a cold forceps for Helicobacter pylori testing. The examined duodenum was normal. Biopsies for histology were taken with a cold forceps for evaluation of celiac disease. Verification of patient identification for the specimens was done by the physician and nurse using the patient's name, date and medical record number. Impression: - Normal upper third of esophagus, middle third of esophagus and lower third of esophagus. - Z-line regular. - Gastritis. Biopsied. - Normal examined duodenum. Biopsied. Recommendation: - Await pathology results. - Return patient to [facility] for ongoing care. Oliver Alejandre M.D. Oliver Alejandre MD 10/30/2016 12:19:30 PM This report has been signed electronically. Note Initiated On: 10/30/2016 11:16 AM I attest to the content of the Intraoperative Record and orders documented therein, exceptions below
--- NOTE | 2016-10-30 12:48 | Anesthesiology Progress Note ---
Anesthesia Post Op Note Date & Time Oct 30, 2016 at 12:49 Vital Signs Pain Intensity: 0.0 Vital Signs Past 12 Hours Date Time Temp Pulse Resp B/P Pulse Ox O2 Delivery O2 Flow Rate FiO2 10/30/16 12:31 60 20 123/60 97 Room Air 10/30/16 11:21 69 18 142/60 97 Room Air 10/30/16 10:38 36.7 64 18 131/70 97 Room Air 10/30/16 10:27 36.9 69 16 124/70 95 Room Air 0.0 10/30/16 08:00 Room Air 10/30/16 07:34 36.9 69 16 124/70 95 Room Air 10/30/16 04:51 36.7 75 18 106/70 99 Room Air 10/30/16 04:00 Room Air Notes Mental Status: alert / awake / arousable, participated in evaluation Pt Amnestic to Procedure: Yes Nausea / Vomiting: adequately controlled Pain: adequately controlled Airway Patency, RR, SpO2: stable & adequate BP & HR: stable & adequate Hydration State: stable & adequate Anesthetic Complications: no major complications apparent
[2016-10-30 13:50] VITALS: BP 132/76; PULSE 64
[2016-10-30] MEDS: POLYETHYLENE (MIRALAX) 17 GM PACK PO SCH (13:54)
[2016-10-30] MEDS: ATORVASTATIN 40 MG TAB PO SCH (13:55)
[2016-10-30] MEDS: CARVEDILOL 6.25 MG TAB PO SCH (13:55)
[2016-10-30] MEDS: DOCUSATE SODIUM 100 MG CAP PO SCH (13:56)
[2016-10-30] MEDS: CITALOPRAM 40 MG TAB PO SCH (13:56)
[2016-10-30] MEDS: LOSARTAN POTASSIUM 50 MG TAB PO SCH (13:57)
[2016-10-30] MEDS: PRENATAL VITAMIN TAB PO SCH (13:57)
--- NOTE | 2016-10-30 14:39 | Discharge Instructions ---
Discharge Instructions Admission Reason for Admission: Anemia,Gi Bleed Discharge Discharge Diagnosis / Problem: Anemia Discharge Goals Goal(s): Improve disease control, Diagnostic testing Activity Recommendations Activity Limitations: resume your previous activity . Instructions / Follow-Up Instructions / Follow-Up Please follow up with Family Medicine Dr. Soriano on November 03 at 10:50am. You will be contacted with a follow up appointment with the anticoagulation clinic. Please restart your Coumadin when you get home today at your usual dose. Please take Lovenox twice a day until you see the anticoagulation clinic. Please take pantoprazole twice a day until otherwise directed by Dr. Soriano. Current Hospital Diet Patient's current hospital diet: AHA Diet (Heart Healthy) Discharge Diet Recommended Diet: AHA Diet (Heart Healthy) Procedures Procedures Performed: EGD with duodenal and gastric bx Pending Studies Studies pending at discharge: yes List of pending studies: Pathology from gastric biopsy Medical Emergencies . Who to Call and When: Medical Emergencies: If at any time you feel your situation is an emergency, please call 911 immediately. . Non-Emergent Contact Non-Emergency issues call your: Primary Care Provider . . "Provider Documentation" section prepared by Estella Mahan. VTE Core Measure Inpt VTE Proph given/why not?: Poncho Alicia, SCD's
[2016-10-30] MEDS ORDERED: ENOXAPARIN 1 MG/KG SQ SCH (14:45)
[2016-10-30] MEDS ORDERED: CITA40TA4 PO (14:47)
[2016-10-30] MEDS ORDERED: LVNIS100 SQ (14:49)
[2016-10-30] MEDS ORDERED: PRT40 PO (14:49)
[2016-10-30] MEDS ORDERED: ENOXAPARIN 100 MG/1ML SYR SQ SCH (15:00)
[2016-10-30 15:17] VITALS: BP 132/76; PULSE 64; TEMP 36.7; O2SAT 96
--- NOTE | 2016-10-30 17:26 | Discharge Summary ---
Discharge Summary Admission Date: Oct 27, 2016 at 19:51 Discharge Date: Oct 30, 2016 Discharge Disposition: Home Principal Diagnosis: Anemia Procedures: EGD - Normal upper third of esophagus, middle third of esophagus and lower third of esophagus. - Z-line regular. - Gastritis. Biopsied. - Normal examined duodenum. Biopsied. Consultations: Gastroenterology Medication Reconciliation New Medications: Pantoprazole (Pantoprazole Sodium) 40 Mg Tab 1 TAB PO BID for 30 Days, #60 TAB Enoxaparin (Enoxaparin Sodium) 100 Mg/Ml Inj 100 MG SQ Q12 for 7 Days, #14 EA Continued Medications: Acetaminophen (Tylenol) 325 Mg Tab 325 MG PO BID PRN for Pain, TAB Aspirin (Aspirin Ec) 81 Mg Tab 81 MG PO DAILY AT NOON Atorvastatin (Lipitor) 80 Mg Tab 80 MG PO QAM, TAB Carvedilol (Coreg) 6.25 Mg Tab 6.25 MG PO BID, TAB Citalopram (Citalopram Hydrobromide) 40 Mg Tab 1 TAB PO DAILY, TAB Diclofenac Sodium (Topical) (Voltaren 1% Top Gel) 1 % Gel 1 DOSE EXT DIRECTED PRN for Pain Docusate Sodium (Stool Softener) 100 Mg Cap 1 CAP PO DAILY AFTERNOON Ferrous Sulfate (Kp Ferrous Sulfate) 325 Mg Tab 1 TAB PO DAILY AFTERNOON, TAB Folic Acid (Folvite) 1 Mg Tab 1 MG PO DAILY AFTERNOON, TAB Furosemide (Lasix) 20 Mg Tab 20 MG PO QAM, TAB Gentamicin Sulfate (Ophth) (Gentamicin 0.3% Oph) 0.3 % Arabella 4 DROPS OTB UD PRN for PRN 2-3 TIMES MONTHLY PRN IF WATER GETS IN EARS Lamotrigine (Lamictal) 200 Mg Tab 200 MG PO QPM Losartan Potassium (Cozaar) 100 Mg Tab 50 MG PO QAM, TAB Melatonin (Kp Melatonin) 3 Mg Tab 6 MG PO HS PRN for Insomnia for 30 Days, #30 TAB Multivit/Min/Iron/Fol Ac/Pren ( Vitamin) Tab 1 TAB PO DAILY AFTERNOON, TAB Probiotic Product (Probiotic) 1 Cap Cap 1 CAP PO DAILY AT NOON Ropinirole (Requip) 0.25 Mg Tab 0.25 MG PO QPM PRN for RESTLESS LEG, TAB Senna/Docusate Sod (Senokot S) 1 Tab Tab 1 TAB PO BID, TAB Warfarin Sod (Jantoven) 7.5 Mg Tab 7.5 MG PO 4XWK, TAB EXCEPT SUNDAY,SUNDAY,SUNDAY Warfarin Sodium (Coumadin) 7.5 Mg Tab 1.5 TABS PO 3XWK SUN, SUN, SUN Admission Information HPI (per Admitting provider): This a 66 yo F with past medical hx of congenital bicuspid aortic valve s/p mechanical aortic valve replacement by Dr Merino in [facility] in 2006 , HTN , Hyperlipidemia presented to ED with progressive SOB , JONES , dizzy spell and lightheadedness , seen at her PCP office today at [facility] Found to be hypotensive BP 84/64 lab work showed Hb ~6 pt was asked to come to ED for further evaluation pt mentions of having chronic dark stool as she takes Fe tablet , no bright red blood per rectum , no hematemesis she takes Coumadin for mechanical AVR INR ~ 5 in ED pt was admitted on 03/2016 with similar presentation , profound anemia required multiple PRBC transfusion Colonoscopy done on 04/18/16 was normal study pt will be admitted to Telemetry PRBC transfusion ordered to correct anemia /hypotension GI eval requested Physical Exam (per Admitting): General Appearance: no apparent distress Head: normocephalic, atraumatic Eyes: sclerae normal Neck: supple, thyroid normal, no JVD Respiratory/Chest: chest non-tender, lungs clear, normal breath sounds, no respiratory distress Cardiovascular: regular rate, rhythm, + pertinent finding (systolic murmur / mechanical valve in aortic area ) Abdomen/GI: normal bowel sounds, non tender, soft Extremities/Musculoskelatal: normal capillary refill, no pedal edema Neurologic/Psych: no motor/sensory deficits, alert, normal mood/affect, + abnormal cerebellar tests Skin: normal color, warm/dry, no rash Lymphatic: no adenopathy Hospital Course Patient was admitted with symptomatic anemia. Hgb was around 6 on admission. Patient was transfused 3units PRBC's with increase in Hgb to 8.5-9 post transfusion. GI was consulted. Patient was started on a PPI drip, although patient did not have any bleeding symptoms. EGD was done and showed gastritis; gastric and duodenal biopsies are pending at the time of discharge. PPI drip was transitioned to BID dosing upon discharge. Patient should continue BID dosing x1 month and then can transition to daily dosing. Patient does have a h/o mechanical prosthetic valve. INR was reversed with vitamin K on admission. Patient remained on a heparin drip during hospitalization. Post EGD, patient was transitioned to Lovenox bridge to Coumadin. Patient was continued on the remainder of her home medications upon discharge. Patient deemed stable for discharge with Family Medicine and anticoagulation clinic follow up. PE on discharge: General- awake; alert; NAD Eyes- EOMI; no scleral icterus Neck- no stridor; trachea midline Lungs- CTA bilaterally; no wheezes/crackles Heart- RRR; +murmur Abdomen- soft; NTND; nBS Back- no gross abnormalities Extremities- trace LE edema; no deformity Neuro- no gross focal deficits Skin- +bruising; no rash . Total time spent on discharge = This includes examination of the patient, discharge planning, medication reconciliation, and communication with other providers. Discharge Instructions Discharge Instructions Admission Reason for Admission: Anemia,Gi Bleed Discharge Discharge Diagnosis / Problem: Anemia Discharge Goals Goal(s): Improve disease control, Diagnostic testing Activity Recommendations Activity Limitations: resume your previous activity . Instructions / Follow-Up Instructions / Follow-Up Please follow up with Family Medicine Dr. Soriano on November 03 at 10:50am. You will be contacted with a follow up appointment with the anticoagulation clinic. Please restart your Coumadin when you get home today at your usual dose. Please take Lovenox twice a day until you see the anticoagulation clinic. Please take pantoprazole twice a day until otherwise directed by Dr. Soriano. Current Hospital Diet Patient's current hospital diet: AHA Diet (Heart Healthy) Discharge Diet Recommended Diet: AHA Diet (Heart Healthy) Procedures Procedures Performed: EGD with duodenal and gastric bx Pending Studies Studies pending at discharge: yes List of pending studies: Pathology from gastric biopsy Medical Emergencies . Who to Call and When: Medical Emergencies: If at any time you feel your situation is an emergency, please call 911 immediately. . Non-Emergent Contact Non-Emergency issues call your: Primary Care Provider . . "Provider Documentation" section prepared by Estella Mahan. VTE Core Measure Inpt VTE Proph given/why not?: Poncho Alicia, SCD's Additional Copies To Tanya Soriano M.D.
== END 2016-10-30 15:33 | disposition home or self-care (01) | DRG 378 ==
LOC: ENRESERVTM → ENRESERVDT → C.EDB 15:43 → C.2T 19:51
PROVIDERS: ADMIT Hospitalist; ATTEND Internal Medicine
PROC: 0DB98ZX Excision of Duodenum, Via Natural or Artificial Opening Endoscopic, Diagnostic (ICD-10-PCS; principal; 2016-10-30 10:35)
PROC: 0DB68ZX Excision of Stomach, Via Natural or Artificial Opening Endoscopic, Diagnostic (ICD-10-PCS; principal; 2016-10-30 10:35)
DX: K29.71 Gastritis, unspecified, with bleeding (principal); D62 Acute posthemorrhagic anemia; I10 Essential (primary) hypertension; E78.5 Hyperlipidemia, unspecified; Z79.82 Long term (current) use of aspirin; Z79.01 Long term (current) use of anticoagulants; Z79.899 Other long term (current) drug therapy; Z95.2 Presence of prosthetic heart valve; Z86.73 Personal history of transient ischemic attack (TIA), and cerebral infarction without residual deficits

== ENCOUNTER 2016-11-22 11:44 | Emergency (ER) | payer OTHER ==
[~2016-11-22] VITALS: Ht 162.6 cm; Wt 96.6 kg
[~2016-11-22 11:44] MED LIST changes: +ACET-1311 PO; -CARV6.252 PO; +CITA40TA4 PO; -CLX20 PO; +GENT0.3S6 OTB; -GENT1SOL OTB; +LVNIS100 SQ; -MELA1TAB3 PO; +MELA1TAB5 PO; +PRT40 PO; +SENN-65 PO
[2016-11-22 11:51] VITALS: TEMP 36.6; Ht 162.6 cm; Wt 96.6 kg
[2016-11-22] MEDS ORDERED: PANT40TA PO (12:24)
[2016-11-22 12:43] LABS: HEMATOCRIT 33.4 % (37-47); MEAN CELL VOLUME 86.3 fL (80-100); MEAN CORPUSCULAR HEMOGLOBIN 27.6 pg (25-34); MEAN PLATELET VOLUME 9.3 fL (7.4-10.4); PLATELET COUNT 141 K/uL (130-400); RED BLOOD COUNT 3.87 M/uL (4.2-5.4); WHITE BLOOD COUNT 5.43 K/uL (4.8-10.8)
[2016-11-22 12:56] LABS: BUN/CREATININE RATIO 11.1 (10-20); CALCIUM 8.9 mg/dl (8.5-10.1); CREATININE 1.4 mg/dl (0.60-1.20); POTASSIUM 3.6 mmol/L (3.5-5.1)
[2016-11-22 13:36] LABS: INR 4.3 (0.9-1.1); PARTIAL THROMBOPLASTIN RATIO 1.6
[2016-11-22] MEDS ORDERED: SODIUM CHLORIDE 0.9% 1000ML 1,000 ML IV STA (13:46)
--- NOTE | 2016-11-22 14:15 | EMERGENCY ROOM VISIT NOTE ---
History First contact with patient: 13:15 (Joanne Baldwin MD) First contact with patient: 13:15 (Kevin Pulido, D.O.) Chief Complaint: HYPOTENSION Stated Complaint: LOW BP-PREV. ER/ADM PROBLEMS History of Present Illness The patient is a 66 year old female who presents to the Emergency Room with complaints of feeling dizzy and low BP today. She has a history of being on Coumadin for a mechanical aortic valve for congenital bicuspid aortic valve ( target INR 2.5-3.5). She was admitted in June 2017 for symptomatic anemia which required transfusion. Since then she has had multiple investigations to assess her bleeding, including video swallow last week, but no causes have been found. She presents today after being at work and feeling lightheaded. She works as a healthcare catering administrative assistant, her blood pressure was checked and she was found to have a blood pressure of 90/50. At that time she called her PCP who recommended she comes in to the ED for evaluation. She denied any chest pain at this time, and denies any shortness of breath. She just felt like she was dizzy and that the room was somewhat spinning. She sat down and the sensation did not go away. She reports it lasted up until she came into the ED, and now she feels well though she does feel thirsty. She reports usually she didn't feeling well. She denies any fevers or chills. Stools are usually dark from iron supplementation. She had stopped the iron supplementation prior to her video swallow, and then restarted it again recently. During the time she had stopped the iron supplement, her stool was back to normal and not dark. Her Coumadin is managed by the Coumadin clinic at [facility]. She takes 7.5 mg 3 times per week, and 11.25 mg 4 times per week. (Joanne Baldwin MD) Review of Systems See HPI for pertinent positives & negatives. A total of 10 systems reviewed and were otherwise negative. (Joanne Baldwin MD) Past Medical/Surgical History Medical Problems: (1) Anemia (2) Anticoagulation therapy continued upon discharge (3) GI bleed (4) Hypertension (5) Kidney disease (Kevin Pulido, D.O.) Family History Cancer FH: coronary artery disease Heart disease Hypertension (Joanne Baldwin MD) Cancer FH: coronary artery disease Heart disease Hypertension (Kevin Pulido D.OLizeth) Social History Smoking Status: Never Smoker Alcohol Use: occasionally Drug Use: none Marital Status: Housing Status: lives with family Occupation Status: retired (Joanne Baldwin MD) Current/Historical Medications Scheduled Atorvastatin (Lipitor), 80 MG PO QAM Carvedilol (Coreg), 6.25 MG PO BID Citalopram (Citalopram Hydrobromide), 40 MG PO QAM Docusate Sodium (Stool Softener), 100 MG PO BID Ferrous Sulfate (Kp Ferrous Sulfate), 325 MG PO BID Folic Acid (Folvite), 1 MG PO DAILY AFTERNOON Furosemide (Lasix), 20 MG PO QAM Lamotrigine (Lamictal), 200 MG PO QPM Losartan Potassium (Cozaar), 50 MG PO QAM Multivit/Min/Iron/Fol Ac/Pren ( Vitamin), 1 TAB PO DAILY AFTERNOON Pantoprazole (Protonix), 40 MG PO BID Probiotic Product (Probiotic), 1 CAP PO DAILY AT NOON Senna/Docusate Sod (Senokot S), 1 TAB PO BID Warfarin Sod (Jantoven), 7.5 MG PO 3XWK Warfarin Sodium (Coumadin), 11.25 MG PO 4XWK Scheduled PRN Acetaminophen (Tylenol), 325 MG PO BID PRN for Pain Diclofenac Sodium (Topical) (Voltaren 1% Top Gel), 1 DOSE EXT DIRECTED PRN for Pain Gentamicin Sulfate (Ophth) (Gentamicin 0.3% Oph), 4 DROPS OTB UD PRN for PRN Melatonin (Kp Melatonin), 6 MG PO HS PRN for Insomnia Ropinirole (Requip), 0.25 MG PO QPM PRN for RESTLESS LEG Allergies Coded Allergies: Ciprofloxacin (Verified Allergy, Intermediate, NAUSEA/HIVES, 11/22/16) Simvastatin (Verified Allergy, Intermediate, HIVES AND SWELLING, 11/22/16) Latex1 -Allergic Contact Dermititis (Verified Allergy, Unknown, BLISTERING HIVES, 11/22/16) Penicillins (Verified Allergy, Unknown, HIVES, 11/22/16) Physical Exam Vital Signs Date Time Temp Pulse Resp B/P Pulse Ox O2 Delivery O2 Flow Rate FiO2 11/22/16 14:48 69 16 117/45 96 Room Air 11/22/16 13:57 65 16 115/61 96 Room Air 11/22/16 12:39 100 Room Air 11/22/16 12:27 67 125/67 66 124/58 70 124/81 11/22/16 12:26 18 100 11/22/16 12:13 67 11/22/16 11:51 36.6 67 20 120/67 96 Room Air (Kevin Pulido, D.OLizeth) Physical Exam GENERAL: Awake, alert, well-appearing, in no acute distress HENT: Normocephalic, atraumatic. Oropharynx unremarkable. EYES: Normal conjunctiva. Sclera non-icteric. NECK: Supple. No nuchal rigidity. FROM. No JVD. RESPIRATORY: Clear to auscultation. CARDIAC: Regular rate, normal rhythm. Extremities warm and well perfused. Pulses equal. ABDOMEN: Soft, non-distended. No tenderness to palpation. No rebound or guarding. No masses. RECTAL: Deferred. MUSCULOSKELETAL: Chest examination reveals no tenderness. The back is symmetrical on inspection without obvious abnormality. There is no CVA tenderness to palpation. No joint edema. LOWER EXTREMITIES: Calves are equal size bilaterally and non-tender. No edema. No discoloration. NEURO: Normal sensorium. No sensory or motor deficits noted. SKIN: No rash or jaundice noted. (Joanne Baldwin MD) Medical Decision & Procedures Laboratory Results 11/22/16 12:20 11/22/16 12:20 Test 11/22/16 12:20 11/22/16 12:35 11/22/16 13:00 Red Blood Count 3.87 M/uL (4.2-5.4) Mean Corpuscular Volume 86.3 fL (80-100) Mean Corpuscular Hemoglobin 27.6 pg (25-34) Mean Corpuscular Hemoglobin Concent 32.0 g/dl (32-36) RDW Standard Deviation 48.5 fL (36.4-46.3) RDW Coefficient of Variation 15.3 % (11.5-14.5) Mean Platelet Volume 9.3 fL (7.4-10.4) Anion Gap 11.0 mmol/L (3-11) Est Creatinine Clear Calc Drug Dose 45.8 ml/min Estimated GFR () 45.9 Estimated GFR (Non- 39.6 BUN/Creatinine Ratio 11.1 (10-20) Calcium Level 8.9 mg/dl (8.5-10.1) Total Bilirubin 0.4 mg/dl (0.2-1) Aspartate Amino Transf (AST/SGOT) 26 U/L (15-37) Alanine Aminotransferase (ALT/SGPT) 23 U/L (12-78) Alkaline Phosphatase 119 U/L (45-117) Total Protein 6.8 gm/dl (6.4-8.2) Albumin 3.4 gm/dl (3.4-5.0) Globulin 3.4 gm/dl (2.5-4.0) Albumin/Globulin Ratio 1.0 (0.9-2) Stool Occult Blood NEGATIVE (NEGATIVE) Prothrombin Time 49.0 SECONDS (9.0-12.0) Prothromb Time International Ratio 4.3 (0.9-1.1) Activated Partial Thromboplast Time 42.7 SECONDS (21.0-31.0) Partial Thromboplastin Ratio 1.6 (Kevin Pulido, D.O.) Medications Administered Medications (Trade) Dose Ordered Sig/Jace Route Start Time Stop Time Status Last Admin Dose Admin Sodium Chloride (Nss 1000ml) 1,000 ml @ 999 mls/hr Q1H1M STAT IV 11/22/16 13:46 11/22/16 14:46 DC 11/22/16 13:58 999 MLS/HR (Kevin Pulido, D.O.) ECG Indication: syncope Rhythm: normal sinus Comparison ECG Date: 11/03/16 Change: no significant change (TWinversion also present in V2. WA interval at that time 220, now 206.) (Joanne Baldwin MD) ED Course 13:00: I evaluated the patient in room C8. A complete history and physical examination were performed. 13:20: She had already had a CBC, CMP, PT/INR ordered by [facility]. I added on an EKG. 13:46: I ordered her a 1L bolus of NSS. Her fecal occult blood test was negative. Dr. Pulido also evaluated the patient. 13:59: I called Gustabo Velarde PA-C. I discussed the patients case with him. He said though her INR was slightly above therapeutic window she has previously had a stroke from missing a day of coumadin, and he will get in contact with the Coumadin Clinic and arrange for her to be reviewed tomorrow. 14:20: I re-evaluated the patient. She felt well. 14:57: The patient was discharged in good condition. (Joanne Baldwin MD) Medical Decision Domi is a 66 yo F on coumadin for mechanical prosthetic aortic valve who presents with an episode of hypotension when at work today. Differential includes: vasovagal syncope, anemia from GI bleed, cardiac arrythymia, dehydration, or orthostatic hypotension. She had an IV placed and labs drawn. She did not have a leukocytosis. She was slightly anemic, but her previous hemoglobin levels were 8-9, so this was a relative improvement. She had a mild creatinine elevation of 1.4, with a baseline of 1.2, and this was believed to be pre-renal due to dehydration. She was given a liter of IV NSS to improve this. She was not orthostatic. Her BP was around 120/80 during her time in the ED. Her INR was 4.3. The patient reported she followed with Gustabo Velarde for this. I called him to discuss, he reported she sees the [facility], and that she will be followed up by then but should continue her current regime as she has previously had a stroke/TIA from when her INR was slightly low. She had no evidence of active bleeding, as her Hb was stable and her fecal occult was negative. I believe this event was vasovagal syncope at work. She was advised to follow up with her PCP, Gustabo Velarde, and the [facility] in the next week, and to have a BMP checked to ensure resolution of her mild MIRNA. She agreed with this and felt safe to be discharged home. She was discharged home in good condition with her . All anticipatory guidance was understood. (Joanne Baldwin MD) Resident Physician Supervision Note: Dr. Baldwin was resident physician during care of patient. I separately evaluated patient and did history and exam. I discussed the case with the resident and generally agree with the findings and plan. Patient presents for near-syncope, she was at work standing for an extended period felt lightheaded and dizzy at her blood pressure checked and she was 94/ 60. Currently she is asymptomatic, her INR is minimally elevated, we advised her to follow up with her Coumadin clinic regarding this. She has a mildly KI, she was given fluids for this encouraged to drink more fluids and follow-up with primary care provider to have her creatinine rechecked next week. She works as a nurse, her creatinine elevation is at level she has had previously. She is discharged home in improved stable condition. Documented By: Kevin Pulido DO (Kevin Pulido, Ortega.O.) Impression Primary Impression: Vasovagal near syncope Departure Information Dispostion Home / Self-Care Condition GOOD Referrals Tanya Soriano M.D. (PCP) Patient Instructions My [facility] Additional Instructions Your INR today was 4.3. Follow-up with the Coumadin clinic and Gustabo Velarde to adjust this. Call them today to make an appointment. Ensure you remain well hydrated to avoid low blood pressure. Follow-up with Gustabo Velarde to review your blood pressure medications as well. If you notice any further chest pain, shortness of breath, fevers, chills, blood in stools, or episodes of low blood pressure please return to the ED. Resident Tracking Resident Involvement: Resident Care Provided Care Provided: Adult ED (Joanne Baldwin MD) Resident Involvement: Resident Care Provided Care Provided: Adult ED (Kevin Pulido, D.O.)
--- NOTE | 2016-11-22 14:31 | EMERGENCY ROOM VISIT NOTE ---
ED Visit Note First contact with patient: 13:15 Resident Physician Supervision Note: Dr. Baldwin was resident physician during care of patient. I separately evaluated patient and did history and exam. I discussed the case with the resident and generally agree with the findings and plan. Patient is predominantly concerned with possibility of a anemia or supratherapeutic INR. She is on Coumadin for a mechanical aortic valve. Her INR was 4.3 and advised her to follow-up with her senior courtroom clerk regarding her dosing of Coumadin. Advised the patient she has a creatinine of 1.4, she was given fluids in the emergency department, she's been trying to increase her fluid intake and advised her to follow up with primary care provider in 1-2 weeks for recheck of her Coumadin and creatinine levels. During my history and physical she remained asymptomatic without complaint. She has a nonfocal neuro exam normal finger to nose no pronator drift. Her orthostatics are negative. I anticipate she had a vasovagal response during work which caused her blood pressure to be mildly decreased at 94/40. She does not have a history of hypertension Documented By: Kevin Pulido DO
[2016-11-22 14:48] VITALS: BP 117/45; PULSE 69; O2SAT 96
== END 2016-11-22 14:57 | disposition home or self-care (01) ==
LOC: C.EDB 11:46 → C.EDC 14:57
DX: R55 Syncope and collapse (principal); I12.9 Hypertensive chronic kidney disease with stage 1 through stage 4 chronic kidney disease, or unspecified chronic kidney disease; N18.9 Chronic kidney disease, unspecified; I35.8 Other nonrheumatic aortic valve disorders; D64.9 Anemia, unspecified; Z79.01 Long term (current) use of anticoagulants; Z79.899 Other long term (current) drug therapy; Z80.9 Family history of malignant neoplasm, unspecified; Z82.49 Family history of ischemic heart disease and other diseases of the circulatory system

== ENCOUNTER → 2016-11-23 | Day surgery (SDC) | payer OTHER ==
[2016-10-18 09:13] VITALS: Ht 162.6 cm; Wt 94.1 kg
[~2016-11-23] VITALS: Ht 162.6 cm; Wt 94.1 kg
[~2016-11-23] MED LIST changes: -ASPI81TA28 PO; +CYCLOPENTOLATE HCL 1% OP SOLN PER DROP CHARGE OPR SCH; +GATIFLOXACIN OP SOLN PER DROP CHARGE OPR SCH; +KETOROLAC 0.5% OP SOLN PER DROP CHARGE OPR SCH; +LACTATED RINGER'S 1000ML 500 ML IV SCH; -LVNIS100 SQ; +PANT40TA PO; +PHENYLEPHRINE HCL 2.5% OP SOLN PER DROP CHARGE OPR SCH; +PROPARACAINE 0.5% OP SOLN PER DROP CHARGE OPR SCH; -PRT40 PO; +TROPICAMIDE 1% OP SOLN PER DROP CHARGE OPR SCH
== END | disposition home or self-care (01) ==
LOC: EDSTATUS 08:00 → C.PAT 13:36
PROVIDERS: ATTEND Ophthalmology
DX: H26.9 Unspecified cataract (principal); Z53.9 Procedure and treatment not carried out, unspecified reason

== ENCOUNTER → 2017-02-20 | Day surgery (SDC) | payer OTHER ==
[2017-01-30 15:57] VITALS: Ht 162.6 cm; Wt 94.1 kg
[~2017-02-20] VITALS: Ht 162.6 cm; Wt 94.1 kg
[~2017-02-20] MED LIST changes: +500ML BSS 0.3ML EPI 1:1000PF IRRIG ONE; +ACETAMINOPHEN 325 MG TAB PO PRN; +AMVISC PLUS 0.8ML SYRINGE INT OCU ONE; +ATROPINE SULFATE 0.1 MG/ML 5ML SYR IV PRN; -CYCLOPENTOLATE HCL 1% OP SOLN PER DROP CHARGE OPR SCH; -DOCU100C PO; +EpHEDrine SULFATE INJ 50 MG/ML AMP IV PRN; +EpINEphrine INJ 1MG/ML AMP 1 MG/ML AMP ONE; +FENTANYL CITRATE INJ 50 MCG/1 ML 2 ML VIAL ONE; -FERR1TAB13 PO; -GATIFLOXACIN OP SOLN PER DROP CHARGE OPR SCH; -KETOROLAC 0.5% OP SOLN PER DROP CHARGE OPR SCH; +LIDOCAINE 3.5% OPH GEL PER APPLICATION CHARGE ONE; +LIDOCAINE HCL 1% MPF 2 ML VIAL ONE; +MIDAZOLAM HCL 1 MG/ML 2ML VIAL ONE; +OCUCOAT 1 ML SOLN IO ONE; -PANT40TA PO; +PHENYLEPHRINE HCL 10% OP SOLN PER DROP CHARGE OPR SCH; -PHENYLEPHRINE HCL 2.5% OP SOLN PER DROP CHARGE OPR SCH; +POVIDONE-IODINE OP SOLN 30 ML BTL ONE; -SENN-65 PO; +TOBRAMYCIN/DEXAMETHASONE OPH OINT PER APPLN CHARGE ONE; -TROPICAMIDE 1% OP SOLN PER DROP CHARGE OPR SCH; +[UNRECOGNIZED DRUG - REMARK] SCH
--- NOTE | 2017-02-20 11:52 | History & Physical Bridge - SC ---
H&P Re-Evaluation Bridge Note: I have examined the patient, reviewed the History & Physical and in the interval since the performance of the History & Physical I have noted the following changes of clinical significance: No changes noted
[2017-02-20] MEDS: PHENYLEPHRINE HCL 2.5% OP SOLN PER DROP CHARGE OPR SCH ×2 (11:57→12:03)
[2017-02-20] MEDS: TROPICAMIDE 1% OP SOLN PER DROP CHARGE OPR SCH ×2 (11:58→12:04)
[2017-02-20] MEDS: CYCLOPENTOLATE HCL 1% OP SOLN PER DROP CHARGE OPR SCH ×2 (11:59→12:05)
[2017-02-20] MEDS: KETOROLAC 0.5% OP SOLN PER DROP CHARGE OPR SCH ×2 (12:00→12:06)
[2017-02-20] MEDS: GATIFLOXACIN OP SOLN PER DROP CHARGE OPR SCH ×2 (12:01→12:11)
--- NOTE | 2017-02-20 12:32 | [facility] Operative Report ---
Operative Report Date of Service Feb 20, 2017. Operative Report 1. PREOPERATIVE DIAGNOSIS: Cataract of the right eye. 2. POSTOPERATIVE DIAGNOSIS: Same. 3. PROCEDURE: Phacoemulsification with intraocular lens implantation of the right eye. SURGEON: Dr. Joe Jack. ANESTHESIA: Topical Lidocaine gel, 1% Non- Preserved intracameral Lidocaine, and monitored intravenous sedation. INDICATIONS FOR THE PROCEDURE: The patient is a 66 - year-old female with a history of cataract of the right eye causing significant visual impairment. The details of the proposed procedure were explained to the patient who asked appropriate questions and following discussion of all risks, benefits and alternatives agreed to have the procedure done. 4. OPERATION AND FINDINGS: DESCRIPTION OF PROCEDURE: After informed consent was obtained, the patient was brought to the Operating Room at the [facility]. The patient was placed in a supine position and then the right eye was prepped and draped in the usual sterile fashion for intraocular surgery. A drop of topical Lidocaine gel was placed in the operative eye. A wire lid speculum was then placed in the fornices. A corneal paracentesis was then created temporally. The Non-Preserved Lidocaine was then instilled into the anterior chamber. The anterior chamber was then pressurized with viscoelastic. A 2.0 mm clear corneal incision was then created temporally. A cystotome was inserted into the anterior chamber and used to create a tear in the anterior lens capsule. This capsular tear was then used to create a small flap and the flap was dragged in a counterclockwise direction in order to create a continuous curvilinear capsulorrhexis. Hydrodissection was accomplished with balanced salt solution. Phacoemulsification of the lens nucleus was then performed in a standard [id number] technique. The phaco time was 16 seconds with an average power of 9 %. The remaining cortical material was removed using irrigation aspiration. The capsular bag was then filled with viscoelastic. A [employer] MI60L +21.5 diopters lens was then loaded into the injector and injected into the capsular bag. The remaining viscoelastic was removed with the irrigation aspiration handpiece. The wound was hydrated and then checked and found to be watertight. The intraocular pressure was checked and found to be adequate. The wire lid speculum was removed and the patient's face was cleaned and dried. TobraDex ointment was placed in the inferior fornix. The patient was discharged to the Recovery Room having tolerated the procedure well. There were no complications. The patient will be seen tomorrow in the office for follow-up. I attest to the content of the Intraoperative Record and any orders documented therein. Any exceptions are noted below.
--- NOTE | 2017-02-20 12:32 | Discharge Instructions-[facility] ---
Discharge Instructions Date of Service Feb 20, 2017. Visit Reason for Visit: Right Cataract Discharge Discharge Diagnosis / Problem: cataract Discharge Goals Goal(s): Improve function Activity Recommendations Activity Limitations: per Instructions/Follow-up section Anesthesia . Post Anesthesia Instructions: If you have had General Anesthesia or IV Sedation: * Do not drive today. * Resume driving when surgeon permits. * Do not make important decisions or sign legal documents today. * Call surgeon for: 1. Temperature elevations greater than 101 degrees F. 2. Uncontrollable pain. 3. Excessive bleeding. 4. Persistent nausea and vomiting. 5. Medication intolerance (nausea, vomiting or rash). * For nausea and vomiting use only clear liquids such as: tea, soda, bouillon until nausea subsides, then gradually increase diet as tolerated. * If you have any concerns or questions, call your surgeon's office. If physician is unavailable and it is an emergency, call 911 or go to the nearest emergency room. . Instructions / Follow-Up Instructions / Follow-Up ACTIVITY RECOMMENDATIONS: * No strenuous lifting, jogging or running for 4 days * No swimming or yard work for 1 week. * Limited bending is permitted, such as putting on shoes. RETURN TO SCHOOL/WORK: No work until seen by physician in office. MEDICATIONS: Resume previous medications unless instructed otherwise by your surgeon. This includes eye drops for glaucoma. Zymaxid/Gatifloxacin (cabrales cap) - one drop every 2 hours until bedtime Nevanac/Ilevro/Prolensa/Ketorolac (wu cap) - one drop every 4 hours until bedtime Prednisolone (white/pink cap, SHAKE WELL) - one drop every 2 hours until bedtime Starting tomorrow - all 3 drops every 4 hours until seen in the office Optive drops - as needed for discomfort SPECIAL CARE INSTRUCTIONS: * Wear eyeshield when sleeping, for four nights. * You may wear your own glasses or sunglasses while awake. * You may read or watch TV * You may shower and wash your face, but be gentle around the eye and pat dry. * Blurry vision and mild irritation are normal. * Call office if pain is more severe or vision becomes dark at . FOLLOW UP VISIT: Follow-up with Dr Jack tomorrow. Diet Recommendations Home Diet: no limitations Procedures Procedures Performed: Right Cataract Phacoemulsification With Intraocular Lens Implant Pending Studies Studies pending at discharge: no Medical Emergencies . Who to Call and When: Medical Emergencies: If at any time you feel your situation is an emergency, please call 911 immediately. . Non-Emergent Contact Non-Emergency issues call your: Manager Risk . . "Provider Documentation" section prepared by Joe Jack. .
[2017-02-20 12:36] VITALS: TEMP 36.6
--- NOTE | 2017-02-20 12:45 | Anesthesia Progress Nt - [facility] ---
Anesthesia Post Op Note Date & Time Feb 20, 2017 at 12:45 Vital Signs Pain Intensity: 0 Vital Signs Past 12 Hours Date Time Temp Pulse Resp B/P (MAP) Pulse Ox O2 Delivery O2 Flow Rate FiO2 02/20/17 12:36 36.6 66 16 145/75 (98) 94 Room Air 02/20/17 11:36 36.7 63 20 137/79 (98) 95 Room Air Notes Mental Status: alert / awake / arousable, participated in evaluation Pt Amnestic to Procedure: Yes Nausea / Vomiting: adequately controlled Pain: adequately controlled Airway Patency, RR, SpO2: stable & adequate BP & HR: stable & adequate Hydration State: stable & adequate Anesthetic Complications: no major complications apparent
[2017-02-20 12:51] VITALS: BP 135/73; PULSE 64; O2SAT 98
== END | disposition home or self-care (01) ==
LOC: X.SURG 11:23
PROVIDERS: ATTEND Ophthalmology
DX: H26.9 Unspecified cataract (principal); I10 Essential (primary) hypertension; M19.90 Unspecified osteoarthritis, unspecified site; Z68.35 Body mass index [BMI] 35.0-35.9, adult; Z90.89 Acquired absence of other organs; Z98.890 Other specified postprocedural states; Z79.01 Long term (current) use of anticoagulants; Z87.891 Personal history of nicotine dependence; Z86.73 Personal history of transient ischemic attack (TIA), and cerebral infarction without residual deficits; Z91.040 Latex allergy status; F41.9 Anxiety disorder, unspecified; Z88.0 Allergy status to penicillin

== ENCOUNTER → 2017-03-27 | Day surgery (SDC) | payer OTHER ==
[2017-03-07 08:01] VITALS: Ht 162.6 cm; Wt 94.1 kg
[~2017-03-27] VITALS: Ht 162.6 cm; Wt 94.1 kg
[~2017-03-27] MED LIST changes: +BSS FLUSH ONE; -FENTANYL CITRATE INJ 50 MCG/1 ML 2 ML VIAL ONE; +PHENYLEPHRINE HCL 10% OP SOLN PER DROP CHARGE OPL SCH; -PHENYLEPHRINE HCL 10% OP SOLN PER DROP CHARGE OPR SCH; +PROPARACAINE 0.5% OP SOLN PER DROP CHARGE OPL SCH; -PROPARACAINE 0.5% OP SOLN PER DROP CHARGE OPR SCH; -[UNRECOGNIZED DRUG - REMARK] SCH
[2017-03-27] MEDS: PHENYLEPHRINE HCL 2.5% OP SOLN PER DROP CHARGE OPL SCH ×2 (13:04→13:09)
[2017-03-27] MEDS: TROPICAMIDE 1% OP SOLN PER DROP CHARGE OPL SCH ×2 (13:05→13:12)
[2017-03-27] MEDS: CYCLOPENTOLATE HCL 1% OP SOLN PER DROP CHARGE OPL SCH ×2 (13:06→13:13)
[2017-03-27] MEDS: GATIFLOXACIN OP SOLN PER DROP CHARGE OPL SCH ×2 (13:09→13:15)
[2017-03-27] MEDS: KETOROLAC 0.5% OP SOLN PER DROP CHARGE OPL SCH ×2 (13:09→13:14)
--- NOTE | 2017-03-27 13:47 | Discharge Instructions-SurgCtr ---
Discharge Instructions Date of Service Mar 27, 2017. Visit Reason for Visit: Cataract Left Eye Discharge Discharge Diagnosis / Problem: cataract Discharge Goals Goal(s): Improve function Activity Recommendations Activity Limitations: per Instructions/Follow-up section Anesthesia . Post Anesthesia Instructions: If you have had General Anesthesia or IV Sedation: * Do not drive today. * Resume driving when surgeon permits. * Do not make important decisions or sign legal documents today. * Call surgeon for: 1. Temperature elevations greater than 101 degrees F. 2. Uncontrollable pain. 3. Excessive bleeding. 4. Persistent nausea and vomiting. 5. Medication intolerance (nausea, vomiting or rash). * For nausea and vomiting use only clear liquids such as: tea, soda, bouillon until nausea subsides, then gradually increase diet as tolerated. * If you have any concerns or questions, call your surgeon's office. If physician is unavailable and it is an emergency, call 911 or go to the nearest emergency room. . Instructions / Follow-Up Instructions / Follow-Up ACTIVITY RECOMMENDATIONS: * No strenuous lifting, jogging or running for 4 days * No swimming or yard work for 1 week. * Limited bending is permitted, such as putting on shoes. RETURN TO SCHOOL/WORK: No work until seen by physician in office. MEDICATIONS: Resume previous medications unless instructed otherwise by your surgeon. This includes eye drops for glaucoma. Zymaxid/Gatifloxacin (cabrales cap) - one drop every 2 hours until bedtime Nevanac/Ilevro/Prolensa/Ketorolac (wu cap) - one drop every 4 hours until bedtime Prednisolone/Durezol (white/pink cap, SHAKE WELL) - one drop every 2 hours until bedtime Starting tomorrow - all 3 drops every 4 hours until seen in the office Optive drops - as needed for discomfort SPECIAL CARE INSTRUCTIONS: * Wear eyeshield when sleeping, for four nights. * You may wear your own glasses or sunglasses while awake. * You may read or watch TV * You may shower and wash your face, but be gentle around the eye and pat dry. * Blurry vision and mild irritation are normal. * Call office if pain is more severe or vision becomes dark at . FOLLOW UP VISIT: Follow-up with Dr Jack tomorrow. Diet Recommendations Home Diet: resume previous diet Procedures Procedures Performed: Left Cataract Phacoemulsification With Intraocular Lens Implant Pending Studies Studies pending at discharge: no Medical Emergencies . Who to Call and When: Medical Emergencies: If at any time you feel your situation is an emergency, please call 911 immediately. . Non-Emergent Contact Non-Emergency issues call your: Flash Designer . . "Provider Documentation" section prepared by Joe Jack. .
--- NOTE | 2017-03-27 13:47 | [facility] Operative Report ---
Operative Report Date of Service Mar 27, 2017. Operative Report 1. PREOPERATIVE DIAGNOSIS: Cataract of the left eye. 2. POSTOPERATIVE DIAGNOSIS: Same. 3. PROCEDURE: Phacoemulsification with intraocular lens implantation of the left eye. SURGEON: Dr. Joe Jack. ANESTHESIA: Topical Lidocaine gel, 1% Non- Preserved intracameral Lidocaine, and monitored intravenous sedation. INDICATIONS FOR THE PROCEDURE: The patient is a 66 - year-old female with a history of cataract of the left eye causing significant visual impairment. The details of the proposed procedure were explained to the patient who asked appropriate questions and following discussion of all risks, benefits and alternatives agreed to have the procedure done. 4. OPERATION AND FINDINGS: DESCRIPTION OF PROCEDURE: After informed consent was obtained, the patient was brought to the Operating Room at the [facility]. The patient was placed in a supine position and then the left eye was prepped and draped in the usual sterile fashion for intraocular surgery. A drop of topical Lidocaine gel was placed in the operative eye. A wire lid speculum was then placed in the fornices. A corneal paracentesis was then created temporally. The Non-Preserved Lidocaine was then instilled into the anterior chamber. The anterior chamber was then pressurized with viscoelastic. A 2.0 mm clear corneal incision was then created temporally. A cystotome was inserted into the anterior chamber and used to create a tear in the anterior lens capsule. This capsular tear was then used to create a small flap and the flap was dragged in a counterclockwise direction in order to create a continuous curvilinear capsulorrhexis. Hydrodissection was accomplished with balanced salt solution. Phacoemulsification of the lens nucleus was then performed in a standard [id number] technique. The phaco time was 17 seconds with an average power of 14 %. The remaining cortical material was removed using irrigation aspiration. The capsular bag was then filled with viscoelastic. A [employer] MI60L +21.5 diopters lens was then loaded into the injector and injected into the capsular bag. The remaining viscoelastic was removed with the irrigation aspiration handpiece. The wound was hydrated and then checked and found to be watertight. The intraocular pressure was checked and found to be adequate. The wire lid speculum was removed and the patient's face was cleaned and dried. TobraDex ointment was placed in the inferior fornix. The patient was discharged to the Recovery Room having tolerated the procedure well. There were no complications. The patient will be seen tomorrow in the office for follow-up. I attest to the content of the Intraoperative Record and any orders documented therein. Any exceptions are noted below.
[2017-03-27 13:49] VITALS: TEMP 36.5
--- NOTE | 2017-03-27 14:01 | Anesthesia Progress Nt - [facility] ---
Anesthesia Post Op Note Date & Time Mar 27, 2017 at 14:00 Vital Signs Pain Intensity: 2 Vital Signs Past 12 Hours Date Time Temp Pulse Resp B/P (MAP) Pulse Ox O2 Delivery O2 Flow Rate FiO2 03/27/17 12:59 37.2 58 18 160/85 (110) 96 Room Air Notes Mental Status: alert / awake / arousable, participated in evaluation Pt Amnestic to Procedure: Yes Nausea / Vomiting: adequately controlled Pain: adequately controlled Airway Patency, RR, SpO2: stable & adequate BP & HR: stable & adequate Hydration State: stable & adequate Anesthetic Complications: no major complications apparent
[2017-03-27 14:13] VITALS: BP 145/83; PULSE 58; O2SAT 96
== END | disposition home or self-care (01) ==
LOC: X.SURG 12:42
PROVIDERS: ATTEND Ophthalmology
DX: H26.9 Unspecified cataract (principal); E78.5 Hyperlipidemia, unspecified; I10 Essential (primary) hypertension; N28.9 Disorder of kidney and ureter, unspecified